=== PATIENT | female | born 1955 | race American Indian/Alaskan Native ===

== ENCOUNTER 2019-06-20 10:25 | Day surgery (SDC) | payer BC, OTHER ==
[~2019-06-20 10:25] MED LIST: BUPIVACAINE/PF (0.25%) 2.5 MG/ML 30 ML VIAL INFILTRATI ONE; BUPIVACAINE/PF (0.5%) 5 MG/1 ML 30 ML VIAL INFILTRATI ONE; LIDOCAINE (1%) 10 MG/1 ML VIAL 20 ML MDV ONE
[2019-06-20] MEDS ORDERED: LIDOCAINE (1%) 10 MG/1 ML VIAL 20 ML MDV ONE (11:14)
[2019-06-20] MEDS ORDERED: BUPIVACAINE/PF (0.5%) 5 MG/1 ML 30 ML VIAL INFILTRATI ONE ×2 (11:14→13:40)
[2019-06-20] MEDS ORDERED: LIDOCAINE (1%) 10 MG/1 ML VIAL 20 ML MDV INFILTRATI ONE ×2 (13:29)
[2019-06-20 13:58] VITALS: BP 147/87
--- NOTE | 2019-06-20 14:58 | XRay Report ---
LUMBAR SPINE AP AND LATERAL VIEWS INDICATION: LOW BACK PAIN// NERVE BLOCK L2-5. The examination was performed in the OR. COMPARISON: No relevant prior imaging study available. FINDINGS/IMPRESSION: 4 needles jarrell the right pedicles at 2, 3, 4 and 5. Large right lateral osteophytes at L4-5. For more detail, please refer to the operative report. Signer Name: Carson Tapia MD Signed: 06/20/2019 2:54 PM Workstation Name: [id number]
--- NOTE | 2019-06-20 16:27 | Procedure Note ---
Date of procedure: 06/20/19 Pre-op diagnosis: chronic right sided low back pain Post-op diagnosis: same Procedure: Lumbar facet blocks at right L2 through L5 Procedure The patient was brought to the OR and placed prone onto the OR table, the lumbar spine was prepped and draped in the usual sterile manner. A timeout procedure was done to identify the patient and the correct levels of nerve block being performed the patient was awake during the procedure. Using C-arm fluoroscopy the L5 through L2 levels were visualized in both the PA and 45 oblique views 20-gauge spinal needles were inserted again under direct fluoroscopic control after placing the spinal needles and the correct position and Marcaine injection was performed using 1% without epinephrine. The patient tolerated the procedure and no complications Anesthesia: local Surgeon: IKER BONILLA Estimated blood loss: minimal Pathology: none Condition: stable Disposition: observation
== END 2019-06-20 10:26 | disposition home or self-care (01) ==
LOC: OR 10:25
PROVIDERS: ATTEND Orthopaedic Surgery
DX: M54.5 Low back pain (principal); G89.29 Other chronic pain; M25.78 Osteophyte, vertebrae; G43.909 Migraine, unspecified, not intractable, without status migrainosus; E78.00 Pure hypercholesterolemia, unspecified; J45.909 Unspecified asthma, uncomplicated; M19.90 Unspecified osteoarthritis, unspecified site; I10 Essential (primary) hypertension; Z88.2 Allergy status to sulfonamides; Z88.6 Allergy status to analgesic agent; Z88.5 Allergy status to narcotic agent; Z91.041 Radiographic dye allergy status; Z91.013 Allergy to seafood; Z90.49 Acquired absence of other specified parts of digestive tract; Z98.51 Tubal ligation status; Z90.710 Acquired absence of both cervix and uterus; Z98.890 Other specified postprocedural states; Z88.8 Allergy status to other drugs, medicaments and biological substances; Z86.73 Personal history of transient ischemic attack (TIA), and cerebral infarction without residual deficits
CPT/HCPCS: 72100; 82962

== ENCOUNTER 2019-07-04 10:45 | Day surgery (SDC) | payer BC ==
[2019-07-04] MEDS ORDERED: BUPIVACAINE/PF (0.5%) 5 MG/1 ML 30 ML VIAL INFILTRATI ONE ×3 (11:16→12:06)
[2019-07-04] MEDS ORDERED: LIDOCAINE (1%) 10 MG/1 ML VIAL 20 ML MDV ONE ×3 (11:16→12:11)
[2019-07-04] MEDS ORDERED: LIDOCAINE (1%) 10 MG/1 ML VIAL 20 ML MDV INFILTRATI ONE ×2 (12:09)
--- NOTE | 2019-07-04 12:35 | Procedure Note ---
Date of procedure: 07/04/19 Pre-op diagnosis: chronic low back pain Post-op diagnosis: same Procedure: Lumbar facet blocks at right L2 through L5 Procedure The patient was brought to the OR and placed prone onto the OR table, the lumbar spine was prepped and draped in the usual sterile manner. A timeout procedure was done to identify the patient and the correct levels of nerve block being performed the patient was awake during the procedure. Using C-arm fluoroscopy the L5 through L2 levels were visualized in both the PA and 45 oblique views 20-gauge spinal needles were inserted again under direct fluoroscopic control after placing the spinal needles and the correct position and Marcaine injection was performed using 1% without epinephrine. The patient tolerated the procedure and no complications Anesthesia: local Surgeon: IKER BONILLA Estimated blood loss: minimal Pathology: none Condition: stable Disposition: observation
[2019-07-04 12:36] VITALS: BP 136/78
--- NOTE | 2019-07-04 13:33 | XRay Report ---
INTRAOPERATIVE FLUOROSCOPY: LUMBAR SPINE INDICATION: Pain along the lumbar spine. Guidance for lumbar spine nerve block. TECHNIQUE: Intraoperative spot images were obtained during the procedure. FINDINGS: The submitted images demonstrate spinal needles placed along the right pedicles of L2-L5. Please see the procedure report for further details. Fluoroscopy Time: 0.4 minutes. Fluoroscopy Images: 2. Signer Name: Juan Bravo MD Signed: 07/04/2019 1:28 PM Workstation Name: [id number]
== END 2019-07-04 12:42 | disposition home or self-care (01) ==
LOC: OR 10:45
PROVIDERS: ATTEND Orthopaedic Surgery
DX: M54.41 Lumbago with sciatica, right side (principal); I10 Essential (primary) hypertension; E78.00 Pure hypercholesterolemia, unspecified; K21.9 Gastro-esophageal reflux disease without esophagitis; G43.909 Migraine, unspecified, not intractable, without status migrainosus; J45.909 Unspecified asthma, uncomplicated; M19.90 Unspecified osteoarthritis, unspecified site; Z83.3 Family history of diabetes mellitus; Z80.0 Family history of malignant neoplasm of digestive organs; Z98.890 Other specified postprocedural states; Z90.710 Acquired absence of both cervix and uterus; Z88.2 Allergy status to sulfonamides; Z88.6 Allergy status to analgesic agent; Z91.013 Allergy to seafood; Z79.84 Long term (current) use of oral hypoglycemic drugs; Z91.041 Radiographic dye allergy status; Z90.49 Acquired absence of other specified parts of digestive tract; Z98.51 Tubal ligation status; Z86.2 Personal history of diseases of the blood and blood-forming organs and certain disorders involving the immune mechanism; Z82.49 Family history of ischemic heart disease and other diseases of the circulatory system; Z86.73 Personal history of transient ischemic attack (TIA), and cerebral infarction without residual deficits
CPT/HCPCS: 72100; 82962

== ENCOUNTER 2019-07-26 09:45 | Day surgery (SDC) | payer BC ==
--- NOTE | 2019-07-26 10:16 | Anesthesia Consultation ---
Anesthesia Consult and Med Hx Date of service: 07/26/19 - Airway Anesthetic Teeth Evaluation: Good ROM Head & Neck: Adequate Mental/Hyoid Distance: Adequate Mallampati Class: Class II Intubation Access Assessment: Good - Pulmonary Exam CTA: Yes - Cardiac Exam Cardiac Exam: RRR - Pre-Operative Health Status ASA Pre-Surgery Classification: ASA3 Proposed Anesthetic Plan: MAC (HTN, DM, prior CVA) - Pulmonary Hx Smoking: No Hx Asthma: Yes (DAILY INHALERS) COPD: No Hx Pneumonia: No Hx Sleep Apnea: No (FABRICIO PRE SCREEN LOW RISK) - Cardiovascular System Hx Hypertension: Yes (X 30 YRS) - Central Nervous System Hx Neuromuscular Disorder: No Hx Seizures: Yes (ON DAILY MEDS) CVA: Yes (2000- RIGHT SIDED WEAKNESS) Hx Back Pain: Yes (CHRONIC PAIN- BACK PAIN TO RT LEG/ DAILY MEDS) Hx Psychiatric Problems: No - Endocrine Hx Renal Disease: No - Hematic Hx Anemia: Yes - Other Systems Hx Cancer: No
[2019-07-26] MEDS ORDERED: ONDANSETRON 4 MG/2 ML INJ IV PRN (10:17)
--- NOTE | 2019-07-26 10:17 | Anesthesia Day of Surgery ---
Anesthesia Day of Surgery - Day of Surgery Patient Examined: Yes Patient H&P Reviewed: Yes Patient is NPO: Yes
[2019-07-26] MEDS ORDERED: BUPIVACAINE/PF (0.5%) 5 MG/1 ML 30 ML VIAL INFILTRATI ONE ×2 (10:55→13:37)
[2019-07-26] MEDS ORDERED: methylPREDNISolone ACETATE 40 MG/1 ML INJ ONE (10:55)
[2019-07-26] MEDS ORDERED: LIDOCAINE (1%) 10 MG/1 ML VIAL 20 ML MDV ONE (10:55)
[2019-07-26] MEDS ORDERED: MIDAZOLAM 2 MG/2 ML INJ IV NR (11:00)
[2019-07-26] MEDS ORDERED: LACTATED RINGERS 1,000 ML IV SCH (11:00)
[2019-07-26 11:41] LABS: Basophils % (Auto) 0.6 % (0.0-1.8); Eosinophils # (Auto) 0.1 K/mm3 (0.0-0.4); Eosinophils % (Auto) 0.9 % (0.0-4.3); Hematocrit 39.6 % (30.3-42.9); Hemoglobin 13.7 gm/dl (10.1-14.3); Lymphocytes # (Auto) 3.7 K/mm3 (1.2-5.4); Lymphocytes % (Auto) 48.2 % (13.4-35.0); Mean Corpuscular HGB Conc 35 % (30-34); Mean Corpuscular Volume 95 fl (79-97); Monocytes # (Auto) 0.5 K/mm3 (0.0-0.8); Monocytes % (Auto) 6.1 % (0.0-7.3); Platelet Count 217 K/mm3 (140-440); Red Blood Count 4.18 M/mm3 (3.65-5.03); Red Cell Distribution Width 13.9 % (13.2-15.2)
[2019-07-26 11:55] LABS: BUN/Creatinine Ratio 13; Blood Urea Nitrogen 10 mg/dL (7-17); Calcium 9.5 mg/dL (8.4-10.2); Hemolysis Index 11
[2019-07-26] MEDS ORDERED: PROPOFOL 200 MG/20 ML VIAL IV ONE (13:01)
[2019-07-26] MEDS ORDERED: fentaNYL 100 MCG/2 ML INJ ONE (13:01)
[2019-07-26] MEDS ORDERED: HYDROmorphone 1 MG/1 ML INJ ONE (13:23)
[2019-07-26] MEDS ORDERED: LIDOCAINE MPF (2%) 20 MG/1 ML VIAL 5 ML ONE (13:24)
[2019-07-26] MEDS ORDERED: LIDOCAINE (1%) 10 MG/1 ML VIAL 20 ML MDV INFILTRATI ONE (14:00)
[2019-07-26] MEDS ORDERED: methylPREDNISolone ACETATE 40 MG/1 ML INJ INTRA-ARTI ONE (14:00)
[2019-07-26] MEDS ORDERED: MIDAZOLAM 2 MG/2 ML INJ ONE (14:26)
--- NOTE | 2019-07-26 14:27 | Procedure Note ---
Date of procedure: 07/26/19 Pre-op diagnosis: chronic low back pain Post-op diagnosis: same Procedure: Lumbar radiofrequency ablation at the right L2-5 Procedure The patient was brought to the OR and placed on the Joel table prone with a pillow place underneath the abdomen to straighten out the lumbar spine next the lumbar spine area was prepped and draped in the usual sterile manner. A timeout procedure done to identify the patient and correct operative site Using C-arm fluoroscopy 4 lumbar pain management introducers placed in the area near the superior articular process junctions to the transverse processes AP and lateral views were used to confirm correct placement of the probes. Next motor nerves were checked to ensure that we were not next to a motor branch following this local anesthetic was used to deaden the area followed by radiofrequency ablation of the medial branch of the dorsal rami. This step repeated for each level until we had perform all four spots. At the completion of the third and final ablation the patient was awakened and was taken to postanesthesia recovery in a stable condition, there were no complications Anesthesia: MAC Surgeon: IKER BONILLA Estimated blood loss: minimal Pathology: none Condition: stable Disposition: PACU
[2019-07-26] MEDS ORDERED: DEXTROSE 50% IN WATER (25GM) 50 ML SYRINGE IV ONE (14:33)
--- NOTE | 2019-07-26 15:03 | XRay Report ---
INTRAOPERATIVE FLUOROSCOPY: LUMBOSACRAL SPINE INDICATION / CLINICAL INFORMATION: LOWER BACK PAIN. TECHNIQUE: Intraoperative spot images were obtained during the procedure. FINDINGS: Lateral image demonstrates spinal needles projecting over the posterior elements from L2-L5. AP image demonstrates radiofrequency probe projecting over the L3 level. Fluoroscopy Time: 0.4 minutes. Fluoroscopy Images: 2. Signer Name: Donna Charles MD Signed: 07/26/2019 2:59 PM Workstation Name: [id number]
[2019-07-26 16:25] VITALS: BP 152/78
--- NOTE | 2019-07-27 06:53 | Post Anesthesia Evaluation ---
- Post Anesthesia Evaluation Patient Participated: Yes Airway Patent: Yes Stable Respiratory Function: Yes Nausea/Vomiting: No Temp > 96.8F: Yes Pain Manageable: Yes Adequeate Hydration: Yes Anesthesia Complications: No Block Receding Appropriately: Not Applicable Patient on Ventilator: No
== END 2019-07-26 09:46 | disposition home or self-care (01) ==
LOC: OR 09:45
PROVIDERS: ATTEND Orthopaedic Surgery
DX: M54.5 Low back pain (principal); G89.29 Other chronic pain; G43.909 Migraine, unspecified, not intractable, without status migrainosus; J45.909 Unspecified asthma, uncomplicated; E78.00 Pure hypercholesterolemia, unspecified; M19.90 Unspecified osteoarthritis, unspecified site; I10 Essential (primary) hypertension; Z98.890 Other specified postprocedural states; Z90.49 Acquired absence of other specified parts of digestive tract; Z88.2 Allergy status to sulfonamides; Z88.6 Allergy status to analgesic agent; Z91.040 Latex allergy status; Z91.013 Allergy to seafood; Z88.8 Allergy status to other drugs, medicaments and biological substances; Z86.73 Personal history of transient ischemic attack (TIA), and cerebral infarction without residual deficits; Z86.2 Personal history of diseases of the blood and blood-forming organs and certain disorders involving the immune mechanism; Z98.51 Tubal ligation status
CPT/HCPCS: 36415; 64635; 64636; 72100; 80048; 82962; 85025; A4649; J1030; J1170; J2250; J2704; J3010; J7120

== ENCOUNTER 2019-08-07 15:49 | Emergency (ER) | payer BC ==
[2019-08-07 15:56] VITALS: BP 133/68
--- NOTE | 2019-08-07 20:22 | Emergency Department Report ---
ED Headache HPI - General Chief Complaint: Headache Stated Complaint: SOB/MIGRAINE Time Seen by Provider: 08/07/19 20:02 Source: patient, RN notes reviewed Exam Limitations: no limitations - History of Present Illness Initial Comments: This is a 64-year-old -[place] female that presents to the emergency room with a migraine headache for 5 days. Past medical history of hypertension, diverticulosis, hyperlipidemia, coronary artery disease, and CVA with right- sided weakness. Patient stays she occasionally get migraine headaches but nothing like this one. Reports headaches is usually on the right side but this time there is a constant throbbing across head. Reports photophobia, nausea, and weakness. Patient also states she is recovering from an upper respiratory infection or possible flu. Reports increased use of inhalers, cough, fever, and chills. She is taking [id number] cold and flu medications with some improvement in symptoms. Timing/Duration: 24 hours Quality: severe, constant, throbbing Head Injury Location: global Recent Head Trauma: chronic headaches Modifying Factors: improves with: exposure to light, movement Associated Symptoms: fever/chills, nausea/vomiting, nasal congestion, nasal drainage, weakness. denies: confusion, fatigue, facial pain, loss of consciousness, numbness in legs/feet, rash, seizures, sinus infection, stiff neck, vision changes Allergies/Adverse Reactions: Allergies Sulfa (Sulfonamide Antibiotics) Allergy (Mild, Verified 08/07/19 15:53) Unknown acetaminophen [From Darvocet-N] Allergy (Verified 08/07/19 15:53) RASH;ITCHING adhesive Allergy (Verified 08/07/19 15:53) PULLS SKIN OFF aspirin Allergy (Verified 08/07/19 15:53) Itching atorvastatin Allergy (Verified 08/07/19 15:53) Unknown caffeine Allergy (Verified 08/07/19 15:53) Unknown ibuprofen [From Motrin] Allergy (Verified 08/07/19 15:53) Unknown Iodinated Contrast Media [Iodinated Contrast Media - IV Dye] Allergy (Verified 08/07/19 15:53) Angioedema iodine Allergy (Verified 08/07/19 15:53) Swelling latex Allergy (Verified 08/07/19 15:53) ITCHING;RASH lidocaine Allergy (Verified 08/07/19 15:53) Unknown oxycodone HCl [From Percocet] Allergy (Verified 08/07/19 15:53) Itching;RASH propoxyphene napsylate [From Darvocet-N] Allergy (Verified 08/07/19 15:53) RASH;ITCHING shellfish derived Allergy (Verified 08/07/19 15:53) Swelling Home Medications: Ambulatory Orders Clonidine HCl 0.1 mg PO BID 04/21/14 Gabapentin 300 mg PO TID 04/21/14 Losartan [Cozaar] 100 mg PO DAILY 04/21/14 amLODIPine 10 mg PO QHS 04/21/14 ALBUTEROL Inhaler (OR & NICU) [ProAir HFA Inhaler] 2 puff IH PRN PRN 06/18/19 Cetirizine HCl [ZyrTEC 10mg cap] 10 mg PO DAILY 06/18/19 Clopidogrel [Plavix] 75 mg PO QDAY 06/18/19 Dicyclomine [Bentyl] 10 mg PO BID PRN 06/18/19 Fluticasone/Vilanterol [Breo Ellipta 100-25 Mcg INH] 1 puff IH DAILY 06/18/19 HYDROcodone/APAP 5-325 [Wendell 5/325] 1 each PO BID 06/18/19 L. Acidophilus/Pectin, Gibson [Acidophilus Probiotic Capsule] 1 each PO DAILY 06/18/19 Linaclotide [Linzess] 290 mcg PO DAILY 06/18/19 Magnesium Citrate 1 dose PO QWEEK PRN 06/18/19 Montelukast [Singulair] 10 mg PO QPM 06/18/19 Phenytoin [Dilantin] 300 mg PO DAILY 06/18/19 Propranolol [Inderal] 40 mg PO BID 06/18/19 Rosuvastatin Calcium [Crestor] 40 mg PO DAILY 06/18/19 Wheat Dextrin [Benefiber] 1 dose PO DAILY 06/18/19 bisacodyL [Dulcolax] 5 mg PO DAILY PRN 06/18/19 metFORMIN [Glucophage] 500 mg PO BID 06/18/19 raNITIdine HCl [Zantac] 300 mg PO QHS 06/18/19 tiZANidine [Zanaflex 4mg TAB] 4 mg PO BID 06/18/19 traZODone [Desyrel] 100 mg PO QHS 06/18/19 HYDROcodone/APAP 7.5-325 [Wendell 7.5-325 mg TAB] 1 each PO Q6HR PRN #20 tablet 07/04/19 HYDROcodone/APAP 5-325 [Wendell 5-325 mg TAB] 1 each PO Q4HR PRN #20 tablet 07/26 Benzonatate [Tessalon Perles] 100 mg PO Q8HR PRN #30 capsule 08/07/19 Butalbital/Acetaminophen [Butalbital-Acetaminophn 50-325] 1 each PO DAILY PRN #10 tablet 08/07/19 Ondansetron [Zofran Odt] 4 mg PO Q8HR PRN #20 tab.rapdis 08/07/19 ED Review of Systems ROS: Stated complaint: SOB/MIGRAINE Other details as noted in HPI Constitutional: denies: chills, fever Eyes: other (photophobia) ENT: congestion. denies: ear pain, throat pain Respiratory: cough, SOB with exertion. denies: shortness of breath, wheezing Cardiovascular: denies: chest pain, palpitations Gastrointestinal: nausea. denies: abdominal pain, vomiting, diarrhea Musculoskeletal: myalgia. denies: back pain, joint swelling, arthralgia Skin: denies: rash, lesions Neurological: headache. denies: weakness, paresthesias Psychiatric: denies: anxiety, depression ED Past Medical Hx - Past Medical History Previous Medical History?: Yes Hx Hypertension: Yes (X 30 YRS) Hx Diabetes: Yes (ON METFORMIN) Hx GERD: Yes (DAILY MEDS) Hx Renal Disease: No Hx Arthritis: Yes (JOINT PAIN) Hx Headaches / Migraines: Yes (MIGRAINES - TAKES DAILY DILANTIN) Hx Seizures: Yes (ON DAILY MEDS) Hx Asthma: Yes (DAILY INHALERS) Hx COPD: No Hx HIV: No - Surgical History Past Surgical History?: Yes Hx Cholecystectomy: Yes - Social History Smoking Status: Never Smoker Substance Use Type: None - Medications Home Medications: Home Medications Medication Instructions Recorded Confirmed Last Taken Type Clonidine HCl 0.1 mg PO BID 04/21/14 07/26/19 07/26/19 05:00 History Gabapentin 300 mg PO TID 04/21/14 07/26/19 07/25/19 22:00 History Losartan [Cozaar] 100 mg PO DAILY 04/21/14 07/26/19 07/26/19 05:00 History amLODIPine 10 mg PO QHS 04/21/14 07/26/19 07/25/19 22:00 History ALBUTEROL Inhaler (OR & NICU) 2 puff IH PRN PRN 06/18/19 07/26/19 07/26/19 06:00 History [ProAir HFA Inhaler] Cetirizine HCl [ZyrTEC 10mg cap] 10 mg PO DAILY 06/18/19 07/26/19 07/26/19 05:00 History Clopidogrel [Plavix] 75 mg PO QDAY 06/18/19 07/26/19 07/19/19 09:00 History Dicyclomine [Bentyl] 10 mg PO BID PRN 06/18/19 07/26/19 07/25/19 19:00 History Fluticasone/Vilanterol [Breo 1 puff IH DAILY 06/18/19 07/26/19 07/25/19 22:00 History Ellipta 100-25 Mcg INH] HYDROcodone/APAP 5-325 [Wendell 1 each PO BID 06/18/19 07/17/19 Unknown History 5/325] L. Acidophilus/Pectin, Gibson 1 each PO DAILY 06/18/19 07/26/19 07/25/19 05:00 History [Acidophilus Probiotic Capsule] Linaclotide [Linzess] 290 mcg PO DAILY 06/18/19 07/26/19 07/25/19 05:00 History Magnesium Citrate 1 dose PO QWEEK PRN 06/18/19 07/26/19 07/19/19 09:00 History Montelukast [Singulair] 10 mg PO QPM 06/18/19 07/26/19 07/25/19 22:00 History Phenytoin [Dilantin] 300 mg PO DAILY 06/18/19 07/26/19 07/26/19 05:00 History Propranolol [Inderal] 40 mg PO BID 06/18/19 07/26/19 07/25/19 22:00 History Rosuvastatin Calcium [Crestor] 40 mg PO DAILY 06/18/19 07/26/19 07/25/19 09:00 History Wheat Dextrin [Benefiber] 1 dose PO DAILY 06/18/19 07/26/19 07/25/19 09:00 Hist ory bisacodyL [Dulcolax] 5 mg PO DAILY PRN 06/18/19 07/26/19 07/25/19 09:00 History metFORMIN [Glucophage] 500 mg PO BID 06/18/19 07/26/19 07/25/19 19:00 History raNITIdine HCl [Zantac] 300 mg PO QHS 06/18/19 07/26/19 07/25/19 22:00 History tiZANidine [Zanaflex 4mg TAB] 4 mg PO BID 06/18/19 07/26/19 07/25/19 22:00 History traZODone [Desyrel] 100 mg PO QHS 06/18/19 07/26/19 07/24/19 21:00 History HYDROcodone/APAP 7.5-325 [Wendell 1 each PO Q6HR PRN #20 tablet 07/04/19 07/26/19 07/25/19 16:00 Rx 7.5-325 mg TAB] HYDROcodone/APAP 5-325 [Wendell 1 each PO Q4HR PRN #20 tablet 07/26/19 Unknown Rx 5-325 mg TAB] Benzonatate [Tessalon Perles] 100 mg PO Q8HR PRN #30 capsule 08/07/19 Unknown Rx Butalbital/Acetaminophen 1 each PO DAILY PRN #10 tablet 08/07/19 Unknown Rx [Butalbital-Acetaminophn 50-325] Ondansetron [Zofran Odt] 4 mg PO Q8HR PRN #20 tab.rapdis 08/07/19 Unknown Rx ED Physical Exam - General Limitations: No Limitations General appearance: alert, in no apparent distress, obese - Eye Eye exam: Present: normal appearance - ENT ENT exam: Present: mucous membranes moist, TM's normal bilaterally, normal external ear exam, other (turbinates congested with clear discharge). Absent: normal orophraynx (erythematous posterior pharynx, uvula midline without exudated) - Neck Neck exam: Present: normal inspection - Respiratory Respiratory exam: Present: normal lung sounds bilaterally. Absent: respiratory distress - Cardiovascular Cardiovascular Exam: Present: regular rate, normal rhythm. Absent: systolic murmur, diastolic murmur, rubs, gallop - GI/Abdominal GI/Abdominal exam: Present: soft, normal bowel sounds. Absent: distended, tenderness, guarding, rebound, rigid - Extremities Exam Extremities exam: Present: normal inspection - Neurological Exam Neurological exam: Present: alert, oriented X3 - Expanded Neurological Exam Expanded Patient oriented to: Present: person, place, time Speech: Present: fluid speech Cranial nerves: EOM's Intact: Normal, Gag Reflex: Normal, Tongue Deviation: Normal, Nystagmus: Normal, Facial Sensation: Normal, Facial Palsy with Forehead Movement: Normal, Facial Palsy without Forehead Movement: Normal Cerebellar function: Finger to Nose: Normal Sensory exam: Upper Extremity Light Touch: Normal, Upper Extremity Pin Prick: Normal, Upper Extremity Temperature: Normal, UE 2 Point Discrimination: Normal Motor strength exam: RUE: 4, LUE: 5 Best Eye Response (Krista): (4) open spontaneously Best Motor Response (Krista): (6) obeys commands Best Verbal Response ([place]): (5) oriented [place] Total: 15 - Psychiatric Psychiatric exam: Present: normal affect, normal mood - Skin Skin exam: Present: warm, dry, intact, normal color. Absent: rash ED Course Vital Signs 08/07/19 15:54 Temperature 98.8 F Pulse Rate 79 Respiratory 19 Rate Blood Pressure 133/68 O2 Sat by Pulse 95 Oximetry ED Medical Decision Making - Radiology Data Radiology results: report reviewed CHEST 2 VIEWS INDICATION: cough and dyspnea. COMPARISON: None. FINDINGS: Support devices: None. Heart: Within normal limits. Lungs/Pleura: No acute air space or interstitial disease. No significant pleural effusion. IMPRESSION: No acute findings. CT head/brain wo con INDICATION / CLINICAL INFORMATION: migraine headache. TECHNIQUE: All CT scans at this location are performed using CT dose reduction for ALARA by means of automated exposure control. COMPARISON: None available. FINDINGS: No intracranial hemorrhage or abnormal extra-axial fluid collection. The ventricular system and basilar cisterns are normal. No evidence of mass effect or territorial infarction. No acute sinus disease. No osseous abnormality. IMPRESSION: 1. No acute intracranial abnormality. - Medical Decision Making Patient is stable and examined by me. Signs of distress noted. CT of hated and chest x-ray are obtained. CT findings of No acute intracranial abnormality. Chest x-ray with no acute cardiopulmonary findings. Given Compazine, Reglan, and dexamethasone while in the ER. Migraine headache. Start Fioricet and Z ofran. Viral syndrome. Start benzonatate and continue [id number]-dei-sisbzkr medication. Follow up with PCP. No further questions noted by the patient. Discharged home in stable condition. Follow up with PCP in 24-72 hours. Critical care attestation.: If time is entered above; I have spent that time in minutes in the direct care of this critically ill patient, excluding procedure time. ED Disposition Clinical Impression: Vomiting alone, Cough in adult, Fever and chills, Acute viral syndrome Migraine Qualifiers: Migraine type: without aura Status migrainosus presence: without status migrainosus Intractability: not intractable Qualified Code(s): G43.009 - Migraine without aura, not intractable, without status migrainosus Disposition: TO HOME OR SELFCARE Is pt being admited?: No Condition: Stable Instructions: Viral Syndrome (ED), Cold Symptoms (ED), Migraine Headache (ED) Additional Instructions: Avoid large crowds to prevent transmission of virus. Increase fluid intake to prevent dehydration. Wash hands frequently. Take Tylenol or ibuprofen every 4-6 hours for relief of headache, fever, and body aches. Return to school after 24 hours of being fever free. Follow up with primary care doctor in 2-3 days if symptoms are not improving. Prescriptions: Butalbital/Acetaminophen [Butalbital-Acetaminophn 50-325] 1 each PO DAILY PRN #10 tablet PRN Reason: Migraine Headache Benzonatate [Tessalon Perles] 100 mg PO Q8HR PRN #30 capsule PRN Reason: Cough Ondansetron [Zofran Odt] 4 mg PO Q8HR PRN #20 tab.rapdis PRN Reason: Cough Referrals: [facility] [Provider Group] - 3-5 Days RAFFY AGUILAR MD [Staff Physician] - 3-5 Days [facility] [Provider Group] - 3-5 Days Time of Disposition: 23:24
--- NOTE | 2019-08-07 21:05 | XRay Report ---
CHEST 2 VIEWS INDICATION: cough and dyspnea. COMPARISON: None. FINDINGS: Support devices: None. Heart: Within normal limits. Lungs/Pleura: No acute air space or interstitial disease. No significant pleural effusion. IMPRESSION: No acute findings. Signer Name: Juan C Guidry MD Signed: 08/07/2019 9:01 PM Workstation Name: [id number]
[2019-08-07] MEDS ORDERED: diphenhydrAMINE 50 MG/ML VIAL IV ONE (21:30)
[2019-08-07] MEDS ORDERED: PROCHLORPERAZINE EDISYLATE 10 MG/2 ML VIAL IV ONE (21:30)
--- NOTE | 2019-08-07 22:25 | Cat Scan Report ---
CT head/brain wo con INDICATION / CLINICAL INFORMATION: migraine headache. TECHNIQUE: All CT scans at this location are performed using CT dose reduction for ALARA by means of automated e xposure control. COMPARISON: None available. FINDINGS: No intracranial hemorrhage or abnormal extra-axial fluid collection. The ventricular system and basilar cisterns are normal. No evidence of mass effect or territorial infarction. No acute sinus disease. No osseous abnormality. IMPRESSION: 1. No acute intracranial abnormality. Signer Name: Walker Archer MD Signed: 08/07/2019 10:21 PM Workstation Name: [id number]
[2019-08-07] MEDS ORDERED: dexAMETHasone 20 MG/5 ML VIAL IV ONE (23:24)
== END 2019-08-08 00:15 | disposition home or self-care (01) ==
LOC: ED 15:49
DX: B34.9 Viral infection, unspecified (principal); I10 Essential (primary) hypertension; E11.9 Type 2 diabetes mellitus without complications; K21.9 Gastro-esophageal reflux disease without esophagitis; M19.90 Unspecified osteoarthritis, unspecified site; G43.909 Migraine, unspecified, not intractable, without status migrainosus; G40.909 Epilepsy, unspecified, not intractable, without status epilepticus; J45.909 Unspecified asthma, uncomplicated; Z90.49 Acquired absence of other specified parts of digestive tract; Z79.899 Other long term (current) drug therapy; Z88.2 Allergy status to sulfonamides; Z88.8 Allergy status to other drugs, medicaments and biological substances
CPT/HCPCS: 70450; 71046; 96374; 96375; 99284; J0780; J1100; J1200

== ENCOUNTER 2019-09-27 11:05 | Inpatient (IN) | payer BC ==
[2019-09-27 14:16] LABS: Hematocrit 40.2 % (30.3-42.9); Hemoglobin 13.7 gm/dl (10.1-14.3); Mean Corpuscular HGB Conc 34 % (30-34); Mean Corpuscular Volume 95 fl (79-97); Platelet Count 210 K/mm3 (140-440); Red Blood Count 4.22 M/mm3 (3.65-5.03); Red Cell Distribution Width 15.5 % (13.2-15.2)
[2019-09-27 14:39] LABS: Alanine Aminotransferase 23 units/L (7-56); Albumin 4.6 g/dL (3.9-5); BUN/Creatinine Ratio 11; Blood Urea Nitrogen 8 mg/dL (7-17); Calcium 9.4 mg/dL (8.4-10.2); Hemolysis Index 23
[2019-09-27 15:02] LABS: INR 0.87 (0.87-1.13)
[2019-09-27 15:03] LABS: Partial Thromboplastin Time 26.1 Sec. (24.2-36.6)
[2019-09-27 15:05] LABS: Basophils % (Manual) 0 % (0.0-1.8); Eosinophils % (Manual) 0 % (0.0-4.3); Platelet Estimate Consistent w Auto; RBC Morphology Normal; Total Cells Counted 100
--- NOTE | 2019-09-27 16:07 | Emergency Department Report ---
ED GI Bleed HPI - General Chief complaint: GI Bleed Stated complaint: RECTAL BLEEDING Time Seen by Provider: 09/27/19 14:36 Source: patient Mode of arrival: Stretcher Limitations: No Limitations - History of Present Illness Initial comments: 64-year-old female with a past medical history of diverticular disease, diverticulitis, partial colon resection secondary to diverticular disease presents to the hospital complaining of rectal bleeding intermittently for the last 1 month more persistent for the last 3 days. Patient states she has a sensation of either passing gas or having a bowel movement and then will passes bright red blood per rectum. She complains of intermittent gnawing left lower quadrant pain that is moderate in intensity and worse with palpation. She denies fever, nausea, or vomiting. She had one episode of rectal bleeding today without the passage of stool. Patient showed me a picture of a blood-filled toilet and brown stool with blood on toilet paper. Patient takes Plavix daily and is allergic to aspirin. Patient had a colonoscopy performed in July secondary to left lower quadrant pain. She states she had a polypectomy. Bleeding has started since last colonoscopy. Although patient has a history of diverticular disease she denies history of diverticular GI bleed requiring blood transfusion. Ent patient's GI doctor: Dr. Erickson - Related Data Home Medications Medication Instructions Recorded Confirmed Last Taken Gabapentin 300 mg PO TID 04/21/14 09/27/19 07/25/19 22:00 Losartan [Cozaar] 100 mg PO DAILY 04/21/14 09/27/19 07/26/19 05:00 amLODIPine 10 mg PO QHS 04/21/14 09/27/19 07/25/19 22:00 Albuterol INH(or & Nicu Only) 2 puff IH PRN PRN 06/18/19 09/27/19 07/26/19 06:00 [ProAir HFA Inhaler] Cetirizine HCl [ZyrTEC 10mg cap] 10 mg PO DAILY 06/18/19 09/27/19 07/26/19 05:00 Clopidogrel [Plavix] 75 mg PO QDAY 06/18/19 09/27/19 07/19/19 09:00 Dicyclomine [Bentyl] 10 mg PO BID PRN 06/18/19 09/27/19 07/25/19 19:00 Fluticasone/Vilanterol [Breo 1 puff IH DAILY 06/18/19 09/27/19 07/25/19 22:00 Ellipta 100-25 Mcg INH] L. Acidophilus/Pectin, Ector 1 each PO DAILY 06/18/19 09/27/19 07/25/19 05:00 [Acidophilus Probiotic Capsule] Linaclotide [Linzess] 290 mcg PO DAILY 06/18/19 09/27/19 07/25/19 05:00 Magnesium Citrate 1 dose PO QWEEK PRN 06/18/19 09/27/19 07/19/19 09:00 Montelukast [Singulair] 10 mg PO QPM 06/18/19 09/27/19 07/25/19 22:00 Phenytoin [Dilantin] 300 mg PO DAILY 06/18/19 09/27/19 07/26/19 05:00 Rosuvastatin Calcium [Crestor] 40 mg PO DAILY 06/18/19 09/27/19 07/25/19 09:00 Wheat Dextrin [Benefiber] 1 dose PO DAILY 06/18/19 09/27/19 07/25/19 09:00 bisacodyL [Dulcolax] 5 mg PO DAILY PRN 06/18/19 09/27/19 07/25/19 09:00 metFORMIN [Glucophage] 500 mg PO BID 06/18/19 09/27/19 07/25/19 19:00 propranoloL [Inderal] 120 mg PO BID 06/18/19 09/27/19 07/25/19 22:00 traZODone [Desyrel] 100 mg PO QHS 06/18/19 07/26/19 07/24/19 21:00 Dilantin 100 mg PO DAILY 09/27/19 09/27/19 Unknown Metoprolol SUCCINATE ER TAB 100 mg PO DAILY 09/27/19 09/27/19 Unknown Pepcid 40 mg PO DAILY 09/27/19 09/27/19 Unknown Sumatriptan 50 mg PO DAILY 09/27/19 09/27/19 Unknown Topiramate 50 mg PO DAILY 09/27/19 09/27/19 Unknown metFORMIN 500 mg PO BID 09/27/19 09/27/19 Unknown Previous Rx's Medication Instructions Recorded Last Taken Type HYDROcodone/APAP 5-325 [Union 1 each PO Q4HR PRN #20 tablet 07/26/19 Unknown Rx 5-325 mg TAB] Ondansetron [Zofran Odt] 4 mg PO Q8HR PRN #20 tab.rapdis 08/07/19 Unknown Rx Allergies Allergy/AdvReac Type Severity Reaction Status Date / Time Sulfa (Sulfonamide Allergy Mild Unknown Verified 08/07/19 15:53 Antibiotics) acetaminophen Allergy RASH;ITCHIN Verified 08/07/19 15:53 [From Darvocet-N] G adhesive Allergy PULLS SKIN Verified 08/07/19 15:53 OFF aspirin Allergy Itching Verified 08/07/19 15:53 atorvastatin Allergy Unknown Verified 08/07/19 15:53 caffeine Allergy Unknown Verified 08/07/19 15:53 ibuprofen [From Motrin] Allergy Unknown Verified 08/07/19 15:53 Iodinated Contrast Media Allergy Angioedema Verified 08/07/19 15:53 [Iodinated Contrast Media - IV Dye] iodine Allergy Swelling Verified 08/07/19 15:53 latex Allergy ITCHING;NESTOR Verified 08/07/19 15:53 H lidocaine Allergy Unknown Verified 08/07/19 15:53 oxycodone HCl [From Percocet] Allergy Itching;NESTOR Verified 08/07/19 15:53 H propoxyphene napsylate Allergy RASH;ITCHIN Verified 08/07/19 15:53 [From Darvocet-N] G shellfish derived Allergy Swelling Verified 08/07/19 15:53 ED Review of Systems ROS: Stated complaint: RECTAL BLEEDING Other details as noted in HPI Comment: All other systems reviewed and negative ED Past Medical Hx - Past Medical History Previous Medical History?: Yes Hx Hypertension: Yes (X 30 YRS) Hx Diabetes: Yes (ON METFORMIN) Hx GERD: Yes (DAILY MEDS) Hx Renal Disease: No Hx Arthritis: Yes (JOINT PAIN) Hx Headaches / Migraines: Yes (MIGRAINES - TAKES DAILY DILANTIN) Hx Seizures: Yes (ON DAILY MEDS) Hx Asthma: Yes (DAILY INHALERS) Hx COPD: No Hx HIV: No - Surgical History Past Surgical History?: Yes Hx Cholecystectomy: Yes - Social History Smoking Status: Never Smoker Substance Use Type: None - Medications Home Medications: Home Medications Medication Instructions Recorded Confirmed Last Taken Type Gabapentin 300 mg PO TID 04/21/14 09/27/19 07/25/19 22:00 History Losartan [Cozaar] 100 mg PO DAILY 04/21/14 09/27/19 07/26/19 05:00 History amLODIPine 10 mg PO QHS 04/21/14 09/27/19 07/25/19 22:00 History Albuterol INH(or & Nicu Only) 2 puff IH PRN PRN 06/18/19 09/27/19 07/26/19 06:00 History [ProAir HFA Inhaler] Cetirizine HCl [ZyrTEC 10mg cap] 10 mg PO DAILY 06/18/19 09/27/19 07/26/19 05:00 History Clopidogrel [Plavix] 75 mg PO QDAY 06/18/19 09/27/19 07/19/19 09:00 History Dicyclomine [Bentyl] 10 mg PO BID PRN 06/18/19 09/27/19 07/25/19 19:00 History Fluticasone/Vilanterol [Breo 1 puff IH DAILY 06/18/19 09/27/19 07/25/19 22:00 History Ellipta 100-25 Mcg INH] L. Acidophilus/Pectin, Ector 1 each PO DAILY 06/18/19 09/27/19 07/25/19 05:00 History [Acidophilus Probiotic Capsule] Linaclotide [Linzess] 290 mcg PO DAILY 06/18/19 09/27/19 07/25/19 05:00 History Magnesium Citrate 1 dose PO QWEEK PRN 06/18/19 09/27/19 07/19/19 09:00 History Montelukast [Singulair] 10 mg PO QPM 06/18/19 09/27/19 07/25/19 22:00 History Phenytoin [Dilantin] 300 mg PO DAILY 06/18/19 09/27/19 07/26/19 05:00 History Rosuvastatin Calcium [Crestor] 40 mg PO DAILY 06/18/19 09/27/19 07/25/19 09:00 History Wheat Dextrin [Benefiber] 1 dose PO DAILY 06/18/19 09/27/19 07/25/19 09:00 History bisacodyL [Dulcolax] 5 mg PO DAILY PRN 06/18/19 09/27/19 07/25/19 09:00 History metFORMIN [Glucophage] 500 mg PO BID 06/18/19 09/27/19 07/25/19 19:00 History propranoloL [Inderal] 120 mg PO BID 06/18/19 09/27/19 07/25/19 22:00 History traZODone [Desyrel] 100 mg PO QHS 06/18/19 07/26/19 07/24/19 21:00 History HYDROcodone/APAP 5-325 [Union 1 each PO Q4HR PRN #20 tablet 07/26/19 09/27/19 Unknown Rx 5-325 mg TAB] Ondansetron [Zofran Odt] 4 mg PO Q8HR PRN #20 tab.rapdis 08/07/19 09/27/19 Unknown Rx Dilantin 100 mg PO DAILY 09/27/19 09/27/19 Unknown History Metoprolol SUCCINATE ER TAB 100 mg PO DAILY 09/27/19 09/27/19 Unknown History Pepcid 40 mg PO DAILY 09/27/19 09/27/19 Unknown History Sumatriptan 50 mg PO DAILY 09/27/19 09/27/19 Unknown History Topiramate 50 mg PO DAILY 09/27/19 09/27/19 Unknown History metFORMIN 500 mg PO BID 09/27/19 09/27/19 Unknown History ED Physical Exam - General Limitations: No Limitations - Other Other exam information: General: No acute distress Head: Atraumatic Eyes: normal appearance ENT: Moist mucous membranes Neck: Normal appearance, no midline tenderness Chest: Clear to auscultation bilaterally CV: Regular rate and rhythm Abdomen: Soft, normal bowel sounds, mild left lower quadrant tenderness, nondistended, no rebound or guarding Rectal: Guaiac negative, brown stool, no gross blood, external hemorrhoids Back: Normal inspection Extremity: Normal inspection, full range of motion Neuro: Alert O x 3, no facial asymmetry, speech clear, no gross motor sensory deficit Psych: Appropriate behavior Skin: No rash ED Course Vital Signs 09/27/19 09/27/19 09/27/19 11:26 16:03 18:34 Temperature 98 F Pulse Rate 87 89 74 Respiratory 16 16 16 Rate Blood Pressure 141/90 Blood Pressure 136/84 131/77 [Left] O2 Sat by Pulse 97 98 98 Oximetry 09/27/19 20:00 Temperature Pulse Rate 68 Respiratory 20 Rate Blood Pressure Blood Pressure 130/70 [Left] O2 Sat by Pulse 98 Oximetry - Reevaluation(s) Reevaluation #1: 09/27/19 22:31 During ED stay patient had a witnessed bloody rectal output without stool. Case was previously discussed with Dr. Carr earlier and he (or colleague) is agreeable to see patient during inpatient admission 09/27/19 22:32 - Consultations Consultation #1: 09/27/19 17:16 case d/w Dr Bakari Carr, since H/h stable and unremarkable digital exam in ed rec outpt f/u with GI. ED Medical Decision Making - Lab Data Result diagrams: 09/27/19 13:43 09/27/19 13:43 Lab Results 09/27/19 09/27/19 09/27/19 Range/Units 13:43 13:43 13:43 WBC 8.1 (4.5-11.0) K/mm3 RBC 4.22 (3.65-5.03) M/mm3 Hgb 13.7 (10.1-14.3) gm/dl Hct 40.2 (30.3-42.9) % MCV 95 (79-97) fl MCH 32 (28-32) pg MCHC 34 (30-34) % RDW 15.5 H (13.2-15.2) % Plt Count 210 (140-440) K/mm3 Lymph % (Auto) Jackscrew Worker Add Manual Diff Complete Total Counted 100 Seg Neuts % (Manual) 45.0 (40.0-70.0) % Band Neutrophils % 0 % Lymphocytes % (Manual) 54.0 H (13.4-35.0) % Reactive Lymphs % (Man) 0 % Monocytes % (Manual) 1.0 (0.0-7.3) % Eosinophils % (Manual) 0 (0.0-4.3) % Basophils % (Manual) 0 (0.0-1.8) % Metamyelocytes % 0 % Myelocytes % 0 % Promyelocytes % 0 % Blast Cells % 0 % Nucleated RBC % Not Reportable Seg Neutrophils # Man 3.6 (1.8-7.7) K/mm3 Band Neutrophils # 0.0 K/mm3 Lymphocytes # (Manual) 4.4 (1.2-5.4) K/mm3 Abs React Lymphs (Man) 0.0 K/mm3 Monocytes # (Manual) 0.1 (0.0-0.8) K/mm3 Eosinophils # (Manual) 0.0 (0.0-0.4) K/mm3 Basophils # (Manual) 0.0 (0.0-0.1) K/mm3 Metamyelocytes # 0.0 K/mm3 Myelocytes # 0.0 K/mm3 Promyelocytes # 0.0 K/mm3 Blast Cells # 0.0 K/mm3 WBC Morphology Not Reportable Hypersegmented Neuts Not Reportable Hyposegmented Neuts Not Reportable Hypogranular Neuts Not Reportable Smudge Cells Not Reportable Toxic Granulation Not Reportable Toxic Vacuolation Not Reportable Dohle Bodies Not Reportable Pelger-Huet Anomaly Not Reportable Dena Rods Not Reportable Platelet Estimate Consistent w auto Clumped Platelets Not Reportable Plt Clumps, EDTA Not Reportable Large Platelets Not Reportable Giant Platelets Not Reportable Platelet Satelliting Not Reportable Plt Morphology Comment Not Reportable RBC Morphology Normal Dimorphic RBCs Not Reportable Polychromasia Not Reportable Hypochromasia Not Reportable Poikilocytosis Not Reportable Anisocytosis Not Reportable Microcytosis Not Reportable Macrocytosis Not Reportable Spherocytes Not Reportable Pappenheimer Bodies Not Reportable Sickle Cells Not Reportable Target Cells Not Reportable Tear Drop Cells Not Reportable Ovalocytes Not Reportable Helmet Cells Not Reportable Hernandez-[place] Bodies Not Reportable [place] Rings Not Reportable [place] Cells Not Reportable Bite Cells Not Reportable Crenated Cell Not Reportable Elliptocytes Not Reportable Acanthocytes (Spur) Not Reportable Rouleaux Not Reportable Hemoglobin C Crystals Not Reportable Schistocytes Not Reportable Malaria parasites Not Reportable Richard Bodies Not Reportable Hem Pathologist Commnt No PT 11.9 L (12.2-14.9) Sec. INR 0.87 (0.87-1.13) APTT 26.1 (24.2-36.6) Sec. Sodium 142 (137-145) mmol/L Potassium 4.4 (3.6-5.0) mmol/L Chloride 106.0 (98-107) mmol/L Carbon Dioxide 20 L (22-30) mmol/L Anion Gap 20 mmol/L BUN 8 (7-17) mg/dL Creatinine 0.7 (0.7-1.2) mg/dL Estimated GFR > 60 ml/min BUN/Creatinine Ratio 11 % Glucose 102 H (65-100) mg/dL Calcium 9.4 (8.4-10.2) mg/dL Total Bilirubin 0.20 (0.1-1.2) mg/dL AST 21 (5-40) units/L ALT 23 (7-56) units/L Alkaline Phosphatase 138 H (35-129) units/L Total Protein 7.0 (6.3-8.2) g/dL Albumin 4.6 (3.9-5) g/dL Albumin/Globulin Ratio 1.9 % - Radiology Data Radiology results: report reviewed CT abdomen pelvis wo con INDICATION / CLINICAL INFORMATION: rectal bleeding, hx of diverticulosis. TECHNIQUE: Axial CT imaging of abdomen and pelvis was obtained without IV contrast. Oral contrast was administered. Coronal and sagittal reformatted imaging obtained and reviewed. All CT scans at this location are performed using CT dose reduction for ALARA by means of automated exposure control. COMPARISON: None available. FINDINGS: CT abdomen without contrast demonstrates grossly normal appearance of the liver, spleen, pancreas, kidneys, and adrenal glands. Prior cholecystectomy. CT pelvis does not demonstrate any pelvic mass, focal inflammatory change, or free fluid. Large amount of stool is present within the rectum consistent with impaction. The GI tract is otherwise unremarkable for acute finding. There is mild diverticulosis throughout the sigmoid and descending colon. Moderate amount of atherosclerotic calcific plaque is seen throughout the abdominal aorta and common iliac arteries, without associated aneurysm. Visualized lung bases are clear. No acute osseous abnormality of significance. There is mild multilevel degenerative disc disease of the lower lumbar spine. IMPRESSION: 1. No acute finding of abdomen or pelvis. 2. Large amount of stool within the rectum consistent with impaction. 3. Diverticulosis noted. - Medical Decision Making pt with repeated episodes of rectal bleeding in ed Vitals stable Initial H&H normal CT abdomen pelvis reviewed suggestive of diverticulosis as well as fecal impaction. In the ED patient is passing blood without stool. External hemo rrhoids on exam with history of internal hemorrhoids as per chart without gross blood during initial digital rectal exam. Patient will be admitted to the hospital service for further evaluation with GI consultation. - Differential Diagnosis Diverticular bleed, colon cancer, upper GI bleed Critical Care Time: No Critical care attestation.: If time is entered above; I have spent that time in minutes in the direct care of this critically ill patient, excluding procedure time. ED Disposition Clinical Impression: Rectal bleeding, External hemorrhoids, Diverticulosis, Abdominal pain, LLQ (left lower quadrant), Fecal impaction in rectum Disposition: OP ADMIT IP TO THIS HOSP Is pt being admited?: Yes Condition: Stable Time of Disposition: 22:39 (Dr Jazz Zamorano/hosp)
[2019-09-27] MEDS ORDERED: ASPIRIN 325 MG TAB ONE (20:29)
[2019-09-27] MEDS ORDERED: MECLIZINE 25 MG TAB ONE (20:29)
--- NOTE | 2019-09-27 22:29 | Cat Scan Report ---
CT abdomen pelvis wo con INDICATION / CLINICAL INFORMATION: rectal bleeding, hx of diverticulosis. TECHNIQUE: Axial CT imaging of abdomen and pelvis was obtained without IV contrast. Oral contrast was administer ed. Coronal and sagittal reformatted imaging obtained and reviewed. All CT scans at this location ar e performed using CT dose reduction for ALARA by means of automated exposure control. COMPARISON: None available. FINDINGS: CT abdomen without contrast demonstrates grossly normal appearance of the liver, spleen, pancreas, ki dneys, and adrenal glands. Prior cholecystectomy. CT pelvis does not demonstrate any pelvic mass, focal inflammatory change, or free fluid. Large amoun t of stool is present within the rectum consistent with impaction. The GI tract is otherwise unremark able for acute finding. There is mild diverticulosis throughout the sigmoid and descending colon. Moderate amount of atherosclerotic calcific plaque is seen throughout the abdominal aorta and common iliac arteries, without associated aneurysm. Visualized lung bases are clear. No acute osseous abnormality of significance. There is mild multilevel degenerative disc disease of t he lower lumbar spine. IMPRESSION: 1. No acute finding of abdomen or pelvis. 2. Large amount of stool within the rectum consistent with impaction. 3. Diverticulosis noted. Signer Name: Rae Moon MD Signed: 09/27/2019 10:24 PM Workstation Name: [id number]
[2019-09-28] MEDS ORDERED: ONDANSETRON 4 MG/2 ML INJ IV PRN (00:18)
[2019-09-28] MEDS ORDERED: INSULIN LISPRO 100 UNIT/ML SUB-Q ONE (00:23)
[2019-09-28] MEDS ORDERED: ALBUTEROL 2.5 MG/3 ML NEBU IH PRN (00:24)
[2019-09-28] MEDS ORDERED: PHENYTOIN 100 MG/4 ML ORAL.LIQD PO ONE (00:56)
[2019-09-28] MEDS ORDERED: traZODone 100 MG TAB PO ONE (01:16)
[2019-09-28] MEDS ORDERED: PHENYTOIN 100 MG CAPSULE.ER ONE (01:16)
[2019-09-28] MEDS: traZODone 100 MG TAB PO SCH ×3 (01:21→22:08)
[2019-09-28] MEDS: D5W/0.45% NACL 1,000 ML IV SCH (04:48)
[2019-09-28] MEDS: PANTOPRAZOLE 40 MG INJ IV SCH ×2 (04:48→14:42)
[2019-09-28 04:55] LABS: Hematocrit 43.6 % (30.3-42.9); Hemoglobin 14.7 gm/dl (10.1-14.3)
--- NOTE | 2019-09-28 05:57 | History and Physical Report ---
History of Present Illness Date of examination: 09/28/19 Date of admission: 09/27/19 23:43 Chief complaint: Rectal bleed for the past 2 days History of present illness: Simin Cedeño is a 64-year-old female with a past medical history of diverticular disease, diverticulitis, partial colon resection secondary to diverticular disease, type 2 diabetes, hypertension, hyperlipidemia, asthma and GERD and external and internal hemorrhoids, presents to the ED complaining of rectal bleeding intermittently for the last 1 month more persistent for the last 2 days. Patient states she has a sensation of either passing gas or having a bowel movement and then will passes bright red blood per rectum. She complains of intermittent left lower quadrant pain that is mild to moderate. She denies fever, nausea, or vomiting. She had one episode of rectal bleeding today without the passage of stool. Patient takes Plavix daily and is allergic to aspirin. Patient had a colonoscopy 3 months ago and states that polyps were removed. Bleeding has started since last colonoscopy. Although patient has a history of diverticular disease she denies history of diverticular GI bleed requiring blood transfusion. patient's GI doctor: Dr. Erickson. Patient is being admitted for further evaluation of her bright red bleeding per rectum Past History Past Medical History: diabetes, GERD, hypertension, hyperlipidemia Past Surgical History: bowel surgery Social history: no significant social history Family history: diabetes, hypertension Medications and Allergies Allergies Allergy/AdvReac Type Severity Reaction Status Date / Time Sulfa (Sulfonamide Allergy Mild Unknown Verified 08/07/19 15:53 Antibiotics) acetaminophen Allergy RASH;ITCHIN Verified 08/07/19 15:53 [From Darvocet-N] G adhesive Allergy PULLS SKIN Verified 08/07/19 15:53 OFF aspirin Allergy Itching Verified 08/07/19 15:53 atorvastatin Allergy Unknown Verified 08/07/19 15:53 caffeine Allergy Unknown Verified 08/07/19 15:53 ibuprofen [From Motrin] Allergy Unknown Verified 08/07/19 15:53 Iodinated Contrast Media Allergy Angioedema Verified 08/07/19 15:53 [Iodinated Contrast Media - IV Dye] iodine Allergy Swelling Verified 08/07/19 15:53 latex Allergy ITCHING;NESTOR Verified 08/07/19 15:53 H lidocaine Allergy Unknown Verified 08/07/19 15:53 oxycodone HCl [From Percocet] Allergy Itching;NESTOR Verified 08/07/19 15:53 H propoxyphene napsylate Allergy RASH;ITCHIN Verified 08/07/19 15:53 [From Kenny] G shellfish derived Allergy Swelling Verified 08/07/19 15:53 Home Medications Medication Instructions Recorded Confirmed Last Taken Type Gabapentin 300 mg PO TID 04/21/14 09/27/19 07/25/19 22:00 History Losartan [Cozaar] 100 mg PO DAILY 04/21/14 09/27/19 07/26/19 05:00 History amLODIPine 10 mg PO QHS 04/21/14 09/27/19 07/25/19 22:00 History Albuterol INH(or & Nicu Only) 2 puff IH PRN PRN 06/18/19 09/27/19 07/26/19 06:00 History [ProAir HFA Inhaler] Cetirizine HCl [ZyrTEC 10mg cap] 10 mg PO DAILY 06/18/19 09/27/19 07/26/19 05:00 History Clopidogrel [Plavix] 75 mg PO QDAY 06/18/19 09/27/19 07/19/19 09:00 History Dicyclomine [Bentyl] 10 mg PO BID PRN 06/18/19 09/27/19 07/25/19 19:00 History Fluticasone/Vilanterol [Breo 1 puff IH DAILY 06/18/19 09/27/19 07/25/19 22:00 History Ellipta 100-25 Mcg INH] L. Acidophilus/Pectin, Ray 1 each PO DAILY 06/18/19 09/27/19 07/25/19 05:00 H istory [Acidophilus Probiotic Capsule] Linaclotide [Linzess] 290 mcg PO DAILY 06/18/19 09/27/19 07/25/19 05:00 History Magnesium Citrate 1 dose PO QWEEK PRN 06/18/19 09/27/19 07/19/19 09:00 History Montelukast [Singulair] 10 mg PO QPM 06/18/19 09/27/19 07/25/19 22:00 History Phenytoin [Dilantin] 300 mg PO DAILY 06/18/19 09/27/19 07/26/19 05:00 History Rosuvastatin Calcium [Crestor] 40 mg PO DAILY 06/18/19 09/27/19 07/25/19 09:00 History Wheat Dextrin [Benefiber] 1 dose PO DAILY 06/18/19 09/27/19 07/25/19 09:00 History bisacodyL [Dulcolax] 5 mg PO DAILY PRN 06/18/19 09/27/19 07/25/19 09:00 History metFORMIN [Glucophage] 500 mg PO BID 06/18/19 09/27/19 07/25/19 19:00 History propranoloL [Inderal] 120 mg PO BID 06/18/19 09/27/19 07/25/19 22:00 History traZODone [Desyrel] 100 mg PO QHS 06/18/19 09/28/19 07/24/19 21:00 History HYDROcodone/APAP 5-325 [[place] 1 each PO Q4HR PRN #20 tablet 07/26/19 09/27/19 Unknown Rx 5-325 mg TAB] Ondansetron [Zofran Odt] 4 mg PO Q8HR PRN #20 tab.rapdis 08/07/19 09/27/19 Unknown Rx Dilantin 100 mg PO DAILY 09/27/19 09/27/19 Unknown History Metoprolol SUCCINATE ER TAB 100 mg PO DAILY 09/27/19 09/27/19 Unknown History Pepcid 40 mg PO DAILY 09/27/19 09/27/19 Unknown History Sumatriptan 50 mg PO DAILY 09/27/19 09/27/19 Unknown History Topiramate 50 mg PO DAILY 09/27/19 09/27/19 Unknown History metFORMIN 500 mg PO BID 09/27/19 09/27/19 Unknown History Active Meds: Active Medications Albuterol (Proventil) 2.5 mg IH Q6H PRN PRN Reason: Dyspnea Dextrose/Sodium Chloride (D5/0.45ns) 1,000 mls @ 75 mls/hr IV DIRECT GRETEL Last Admin: 09/28/19 04:48 Dose: 75 mls/hr Documented by: Ondansetron HCl (Zofran) 4 mg IV Q8H PRN PRN Reason: Nausea And Vomiting Pantoprazole Sodium (Protonix) 40 mg IV Q12H GRETEL Last Admin: 09/28/19 04:48 Dose: 40 mg Documented by: Sodium Chloride (Sodium Chloride Flush Syringe 10 Ml) 10 ml IV BID GRETEL Sodium Chloride (Sodium Chloride Flush Syringe 10 Ml) 10 ml IV PRN PRN PRN Reason: LINE FLUSH Trazodone HCl (Desyrel) 100 mg PO QHS [facility] Last Admin: 09/28/19 01:21 Dose: 100 mg Documented by: Review of Systems All systems: negative (13 point review of systems is essentially unremarkable except as stated above in the history of present illness) Exam - Constitutional Vitals: Temp Pulse Resp BP Pulse Ox 98 F 68 14 162/73 97 09/27/19 11:26 09/27/19 20:00 09/28/19 01:09 09/28/19 01:09 09/28/19 01:09 General appearance: Present: no acute distress, well-nourished - EENT Eyes: Present: PERRL, EOM intact ENT: hearing intact, clear oral mucosa - Neck Neck: Present: supple, normal ROM. Absent: masses or JVD - Respiratory Respiratory effort: normal Respiratory: bilateral: CTA - Cardiovascular Rhythm: regular Heart Sounds: Present: S1 & S2 - Extremities Extremities: No edema - Abdominal General gastrointestinal: Present: soft, non-tender. Absent: hepatomegaly, splenomegaly Female genitourinary: Present: deferred - Rectal Rectal Exam: deferred - Integumentary Integumentary: Present: clear - Musculoskeletal Musculoskeletal: strength equal bilaterally - Psychiatric Psychiatric: appropriate mood/affect - Neurologic Neurologic: no focal deficits, moves all extremities Results - Labs CBC & Chem 7: 09/28/19 03:38 09/27/19 13:43 Labs: Abnormal lab results 09/27/19 09/27/19 09/27/19 Range/Units 13:43 13:43 13:43 Hgb (10.1-14.3) gm/dl Hct (30.3-42.9) % RDW 15.5 H (13.2-15.2) % Lymphocytes % (Manual) 54.0 H (13.4-35.0) % PT 11.9 L (12.2-14.9) Sec. Carbon Dioxide 20 L (22-30) mmol/L Glucose 102 H (65-100) mg/dL Alkaline Phosphatase 138 H (35-129) units/L 02/15/20 Range/Units 03:38 Hgb 14.7 H (10.1-14.3) gm/dl Hct 43.6 H (30.3-42.9) % RDW (13.2-15.2) % Lymphocytes % (Manual) (13.4-35.0) % PT (12.2-14.9) Sec. Carbon Dioxide (22-30) mmol/L Glucose (65-100) mg/dL Alkaline Phosphatase (35-129) units/L Assessment and Plan - Patient Problems (1) Rectal bleeding Current Visit: Yes Status: Acute Plan to address problem: Although patient states that she has been having rectal bleed off and on for the past month and increased frequency of rectal bleed for the past 2 days, her hemoglobin and hematocrit are in the normal range and she is hemodynamically stable. Rule out rectal bleed secondary to internal/external hemorrhoids, rule out diverticular bleed GI was consulted by the ED physician Will keep the patient n.p.o. Monitor H&H closely IV fluids CT of the abdomen and pelvis results reviewed (2) Hx of irritable bowel syndrome Current Visit: Yes Status: Chronic Plan to address problem: Patient states that she was told by her GI that she has IBS Await GI follow-up (3) Chronic constipation Current Visit: Yes Status: Chronic Plan to address problem: CT of the abdomen and pelvis results reviewed Await GI follow-up (4) Hypertension Current Visit: Yes Status: Chronic Qualifiers: Hypertension type: essential hypertension Qualified Code(s): I10 - Essential (primary) hypertension Plan to address problem: Resume patient's home medications Blood pressure is fair (5) Hyperlipidemia Current Visit: Yes Status: Chronic Plan to address problem: Patient is not on any medication as she is allergic to statin
[2019-09-28 07:30] LABS: Hematocrit 41.9 % (30.3-42.9); Hemoglobin 14.3 gm/dl (10.1-14.3)
--- NOTE | 2019-09-28 16:03 | Event Note ---
Date: 09/28/19 Patient admitted with rectal bleeding. I have seen and examined her. GI following.
[2019-09-28] MEDS ORDERED: HYDROcodone/ACETAMINOPHEN 5-325 MG TAB PO PRN (17:37)
[2019-09-28] MEDS ORDERED: NON-FORMULARY EACH (Losartan [Cozaar] 100 MG) PO SCH (17:45)
[2019-09-28] MEDS ORDERED: VILANTEROL IH SCH (17:45)
[2019-09-28] MEDS ORDERED: TOPIRAMATE 50 MG PO SCH (17:45)
[2019-09-28] MEDS ORDERED: FLUTICASONE IH SCH (17:45)
[2019-09-28] MEDS: PHENYTOIN 100 MG CAPSULE.ER PO SCH (18:44)
[2019-09-28] MEDS: MONTELUKAST 10 MG TAB PO SCH (18:45)
[2019-09-28] MEDS: LOSARTAN 50 MG TAB PO SCH (19:37)
[2019-09-28] MEDS: GABAPENTIN 100 MG CAP PO SCH (20:00)
[2019-09-28] MEDS: amLODIPine 10 MG TAB PO SCH (21:38)
[2019-09-28] MEDS ORDERED: NON-FORMULARY EACH (Metformin 500 MG) PO SCH (22:00)
[2019-09-28] MEDS: PROPRANOLOL 40 MG TAB PO SCH (23:08)
--- NOTE | 2019-09-29 01:22 | Consultation ---
REFERRING PHYSICIAN: Estevan Elder MD INDICATION: Rectal bleeding. HISTORY OF PRESENT ILLNESS: The patient is a 64-year-old black female with a history of diverticulitis, diverticular disease, and status post partial resection due to diverticular disease in the past as well as diabetes, hypertension, and high cholesterol. The patient presents with intermittent rectal bleeding for the last month, worse over the last 2 days. She reports 2-3 bloody bowel movements at that time when she goes to the restroom. She reports no nausea or vomiting. She denies any melena. She reports the blood is bright red and maroon. She denies any significant weight loss. The patient is concerned about this. The patient reports she had a colonoscopy 3-4 months ago, which showed diverticular disease and polyps. She denies any other specific complaints. PAST MEDICAL HISTORY: 1. Hypertension. 2. GERD. 3. High cholesterol. PAST SURGICAL HISTORY: Status post partial colon resection for diverticular disease. MEDICATIONS: Reviewed and updated in chart. ALLERGIES: INCLUDES SULFA, ACETAMINOPHEN, STATIN, LATEX, LIDOCAINE, OXYCODONE, AND DARVOCET. SOCIAL HISTORY: Denies alcohol, tobacco, or drug abuse. FAMILY HISTORY: Negative for colon cancer, IBD, or liver disease. REVIEW OF SYSTEMS: GENERAL: Reports mild weakness. HEENT: No visual complaints or tinnitus. PULMONARY: No shortness of breath. No cough. No chest pain. GASTROINTESTINAL: Reports rectal bleeding. All points of 13-point review of systems otherwise negative. PHYSICAL EXAMINATION: VITAL SIGNS: Temperature of 98.5, pulse 79, respirations 18, blood pressure 143/70. GENERAL: Fairly nourished female, in no acute distress. HEENT: Pupils equal, round, reactive. PULMONARY: Clear to auscultation bilaterally. CARDIOVASCULAR: Regular rhythm. Normal S1, S2. ABDOMEN: Soft. SKIN: No obvious rashes. LABORATORY DATA: Pertinent for a white count of 8.1, hemoglobin and hematocrit of 13.7 and 40.2, platelet count of 210. Chem-7 within normal limits. LFTs within normal limits. Coags within normal limits. CT scan of abdomen and pelvis with contrast performed on 09/27/2014 showed some stool, but otherwise negative. ASSESSMENT AND PLAN: A 64-year-old female with a history of diverticular disease and partial resection for diverticular disease of the colon, now presents with 2 days of 2-3 per day bloody bowel movements with a stable H and H. The patient has had no further bleeding today. The patient was very anxious about this recent event. Management as noted below. PLAN: 1. Follow hematocrit and transfuse as needed. 2. Avoid NSAIDs and aspirin. 3. If stable in a.m., probably can be discharged from GI standpoint, though I think the patient will probably uncomfortable with that decision. 4. Consider colonoscopy on Monday if the patient is still in the hospital. 5. We will follow. JOB# [id number] CAB/NTS
[2019-09-29 04:55] LABS: Hematocrit 38.9 % (30.3-42.9); Hemoglobin 13.3 gm/dl (10.1-14.3); Mean Corpuscular HGB Conc 34 % (30-34); Mean Corpuscular Volume 94 fl (79-97); Platelet Count 195 K/mm3 (140-440); Red Blood Count 4.15 M/mm3 (3.65-5.03); Red Cell Distribution Width 15.4 % (13.2-15.2)
[2019-09-29 05:13] LABS: BUN/Creatinine Ratio 6; Blood Urea Nitrogen 4 mg/dL (7-17); Calcium 9.1 mg/dL (8.4-10.2); Hemolysis Index 8
[2019-09-29 06:17] LABS: Basophils % (Manual) 0 % (0.0-1.8); Total Cells Counted 100
[2019-09-29 06:18] LABS: Platelet Estimate Consistent w Auto; Schistocytes Rare
[2019-09-29] MEDS: GABAPENTIN 100 MG CAP PO SCH ×3 (08:40→22:46)
[2019-09-29] MEDS: metFORMIN 500 MG TAB PO SCH ×2 (08:40→18:17)
[2019-09-29] MEDS: LOSARTAN 50 MG TAB PO SCH (09:25)
[2019-09-29] MEDS: PROPRANOLOL 40 MG TAB PO SCH ×2 (09:25→22:43)
[2019-09-29] MEDS: CETIRIZINE 10 MG TAB PO SCH (09:25)
[2019-09-29] MEDS: PHENYTOIN 100 MG CAPSULE.ER PO SCH (09:26)
[2019-09-29] MEDS: TOPIRAMATE TAB 25 MG TAB PO SCH (09:26)
[2019-09-29] MEDS: BUDESONIDE 0.5 MG/2 ML NEBU IH SCH ×2 (09:59→20:23)
[2019-09-29] MEDS: ARFORMOTEROL 15 MCG/2 ML NEBU IH SCH ×2 (10:00→20:23)
[2019-09-29] MEDS ORDERED: NON-FORMULARY EACH (Rosuvastatin Calcium [Crestor] 40 MG) PO SCH (10:00)
[2019-09-29] MEDS ORDERED: NON-FORMULARY EACH (Cetirizine Hcl [Zyrtec 10mg Cap] 10 MG) PO SCH (10:00)
--- NOTE | 2019-09-29 12:15 | Progress Note ---
Assessment and Plan Assessment and plan: Rectal bleeding Rule out rectal bleed secondary to internal/external hemorrhoids, rule out diverticular bleed GI was consulted by the ED physician Monitor H&H closely IV fluids CT of the abdomen and pelvis results reviewed Discussed with Dr. Bustillos. For colonoscopy tomorrow Hx of irritable bowel syndrome Patient states that she was told by her GI that she has IBS Chronic constipation CT of the abdomen and pelvis results reviewed Hypertension Resume patient's home medications Blood pressure is fair Hyperlipidemia Patient is not on any medication as she is allergic to statin For colonoscopy tomorrow Hospitalist Physical - Physical exam Narrative exam: GEN: Not in acute distress, lying in bed, overweight HEENT: Normocephalic, atraumatic, Neck: supple, No JVD Lungs: Clear to auscultation, no wheeze, heart;S1 and S2 reg, no murmurs, rubs or gallop Abd:soft, non tender , non distended, normal bowel sounds Ext: No edema, no clubbing, no cyanosis Neuro: Awake,alert, oriented X 3, no focal neurological signs - Constitutional Vitals: Temp Pulse Resp BP Pulse Ox 98.3 F 94 H 18 129/79 97 09/28/19 22:41 09/29/19 09:25 09/28/19 22:41 09/29/19 09:25 09/28/19 22:41 General appearance: Present: no acute distress, well-nourished Results - Labs CBC & Chem 7: 09/29/19 04:30 09/29/19 04:30 Labs: Laboratory Last Values WBC 7.1 K/mm3 (4.5-11.0) 09/29/19 04:30 RBC 4.15 M/mm3 (3.65-5.03) 09/29/19 04:30 Hgb 13.3 gm/dl (10.1-14.3) 09/29/19 04:30 Hct 38.9 % (30.3-42.9) 09/29/19 04:30 MCV 94 fl (79-97) 09/29/19 04:30 MCH 32 pg (28-32) 09/29/19 04:30 MCHC 34 % (30-34) 09/29/19 04:30 RDW 15.4 % (13.2-15.2) H 09/29/19 04:30 Plt Count 195 K/mm3 (140-440) 09/29/19 04:30 Lymph % (Auto) Forest[employer] Aid 09/29/19 04:30 Add Manual Diff Complete 09/29/19 04:30 Total Counted 100 09/29/19 04:30 Seg Neutrophils % [employer] Aid 09/29/19 04:30 Seg Neuts % (Manual) 33.0 % (40.0-70.0) L 09/29/19 04:30 Band Neutrophils % 0 % 09/29/19 04:30 Lymphocytes % (Manual) 60.0 % (13.4-35.0) H 09/29/19 04:30 Reactive Lymphs % (Man) 0 % 09/29/19 04:30 Monocytes % (Manual) 6.0 % (0.0-7.3) 09/29/19 04:30 Eosinophils % (Manual) 1.0 % (0.0-4.3) 09/29/19 04:30 Basophils % (Manual) 0 % (0.0-1.8) 09/29/19 04:30 Metamyelocytes % 0 % 09/29/19 04:30 Myelocytes % 0 % 09/29/19 04:30 Promyelocytes % 0 % 09/29/19 04:30 Blast Cells % 0 % 09/29/19 04:30 Nucleated RBC % Not Reportable 09/29/19 04:30 Seg Neutrophils # Man 2.3 K/mm3 (1.8-7.7) 09/29/19 04:30 Band Neutrophils # 0.0 K/mm3 09/29/19 04:30 Lymphocytes # (Manual) 4.3 K/mm3 (1.2-5.4) 09/29/19 04:30 Abs React Lymphs (Man) 0.0 K/mm3 09/29/19 04:30 Monocytes # (Manual) 0.4 K/mm3 (0.0-0.8) 09/29/19 04:30 Eosinophils # (Manual) 0.1 K/mm3 (0.0-0.4) 09/29/19 04:30 Basophils # (Manual) 0.0 K/mm3 (0.0-0.1) 09/29/19 04:30 Metamyelocytes # 0.0 K/mm3 09/29/19 04:30 Myelocytes # 0.0 K/mm3 09/29/19 04:30 Promyelocytes # 0.0 K/mm3 09/29/19 04:30 Blast Cells # 0.0 K/mm3 09/29/19 04:30 WBC Morphology Not Reportable 09/29/19 04:30 Hypersegmented Neuts Not Reportable 09/29/19 04:30 Hyposegmented Neuts Not Reportable 09/29/19 04:30 Hypogranular Neuts Not Reportable 09/29/19 04:30 Smudge Cells Not Reportable 09/29/19 04:30 Toxic Granulation Not Reportable 09/29/19 04:30 Toxic Vacuolation Not Reportable 09/29/19 04:30 Dohle Bodies Not Reportable 09/29/19 04:30 Pelger-Huet Anomaly Not Reportable 09/29/19 04:30 Dena Rods Not Reportable 09/29/19 04:30 Platelet Estimate Consistent w auto 09/29/19 04:30 Clumped Platelets Not Reportable 09/29/19 04:30 Plt Clumps, EDTA Not Reportable 09/29/19 04:30 Large Platelets Not Reportable 09/29/19 04:30 Giant Platelets Not Reportable 09/29/19 04:30 Platelet Satelliting Not Reportable 09/29/19 04:30 Plt Morphology Comment Not Reportable 09/29/19 04:30 RBC Morphology Not Reportable 09/29/19 04:30 Dimorphic RBCs Not Reportable 09/29/19 04:30 Polychromasia Not Reportable 09/29/19 04:30 Hypochromasia Not Reportable 09/29/19 04:30 Poikilocytosis Not Reportable 09/29/19 04:30 Anisocytosis Not Reportable 09/29/19 04:30 Microcytosis Not Reportable 09/29/19 04:30 Macrocytosis Not Reportable 09/29/19 04:30 Spherocytes Not Reportable 09/29/19 04:30 Pappenheimer Bodies Not Reportable 09/29/19 04:30 Sickle Cells Not Reportable 09/29/19 04:30 Target Cells Not Reportable 09/29/19 04:30 Tear Drop Cells Not Reportable 09/29/19 04:30 Ovalocytes Not Reportable 09/29/19 04:30 Helmet Cells Not Reportable 09/29/19 04:30 [place] Bodies Not Reportable 09/29/19 04:30 [place] Rings Not Reportable 09/29/19 04:30 Yasir Cells Not Reportable 09/29/19 04:30 Bite Cells Not Reportable 09/29/19 04:30 Crenated Cell Not Reportable 09/29/19 04:30 Elliptocytes Not Reportable 09/29/19 04:30 Acanthocytes (Spur) Not Reportable 09/29/19 04:30 Rouleaux Not Reportable 09/29/19 04:30 Hemoglobin C Crystals Not Reportable 09/29/19 04:30 Schistocytes Rare 09/29/19 04:30 Malaria parasites Not Reportable 09/29/19 04:30 Richard Bodies Not Reportable 09/29/19 04:30 Hem Pathologist Commnt No 09/29/19 04:30 PT 11.9 Sec. (12.2-14.9) L 09/27/19 13:43 INR 0.87 (0.87-1.13) 09/27/19 13:43 APTT 26.1 Sec. (24.2-36.6) 09/27/19 13:43 Sodium 143 mmol/L (137-145) 09/29/19 04:30 Potassium 3.4 mmol/L (3.6-5.0) L D 09/29/19 04:30 Chloride 108.3 mmol/L (98-107) H 09/29/19 04:30 Carbon Dioxide 20 mmol/L (22-30) L 09/29/19 04:30 Anion Gap 18 mmol/L 09/29/19 04:30 BUN 4 mg/dL (7-17) L 09/29/19 04:30 Creatinine 0.7 mg/dL (0.7-1.2) 09/29/19 04:30 Estimated GFR > 60 ml/min 09/29/19 04:30 BUN/Creatinine Ratio 6 % 09/29/19 04:30 Glucose 112 mg/dL (65-100) H 09/29/19 04:30 POC Glucose 101 (70-105) 09/29/19 11:42 Calcium 9.1 mg/dL (8.4-10.2) 09/29/19 04:30 Total Bilirubin 0.20 mg/dL (0.1-1.2) 09/27/19 13:43 AST 21 units/L (5-40) 09/27/19 13:43 ALT 23 units/L (7-56) 09/27/19 13:43 Alkaline Phosphatase 138 units/L (35-129) H 09/27/19 13:43 Total Protein 7.0 g/dL (6.3-8.2) 09/27/19 13:43 Albumin 4.6 g/dL (3.9-5) 09/27/19 13:43 Albumin/Globulin Ratio 1.9 % 09/27/19 13:43 Active Medications - Current Medications Current Medications: Generic Name Dose Route Start Last Admin Trade Name Freq PRN Reason Stop Dose Admin Acetaminophen/Hydrocodone Bitart 1 each 09/28/19 17:37 [place] 5/325 PO Q4HR PRN Pain, Moderate (4-6) Albuterol 2.5 mg 09/28/19 00:24 Proventil IH Q6H PRN Dyspnea Amlodipine Besylate 10 mg 09/28/19 22:00 09/28/19 21:38 Amlodipine PO 10 mg QHS GRETEL Administration Arformoterol Tartrate 15 mcg 09/29/19 08:00 09/29/19 10:00 Brovana Nebu IH 15 mcg Q12HRT GRETEL Administration Bisacodyl 5 mg 09/28/19 17:37 09/28/19 23:09 Dulcolax PO 5 mg DAILY PRN Administration Constipation Budesonide 0.5 mg 09/29/19 08:00 09/29/19 09:59 Pulmicort IH 0.5 mg Q12HRT GRETEL Administration Cetirizine HCl 10 mg 09/29/19 10:00 09/29/19 09:25 Cetirizine PO 10 mg DAILY GRETEL Administration Gabapentin 300 mg 09/28/19 20:00 09/29/19 08:40 Gabapentin PO 300 mg TID GRETEL Administration Dextrose/Sodium Chloride 1,000 mls @ 75 mls/hr 09/28/19 01:00 09/28/19 04:48 D5/0.45ns IV 75 mls/hr DIRECT GRETEL Administration Losartan Potassium 100 mg 09/28/19 18:00 09/29/19 09:25 Cozaar PO 100 mg QDAY GRETEL Administration Metformin HCl 500 mg 09/28/19 20:00 02/16/20 08:40 Glucophage PO 500 mg BIDDIAB GRETEL Administration Miscellaneous Medication 40 mg 09/29/19 10:00 Rosuvastatin Calcium [Crestor] PO DAILY GRETEL Montelukast Sodium 10 mg 09/28/19 18:00 09/28/19 18:45 Singulair PO 10 mg QPM GRETEL Administration Ondansetron HCl 4 mg 09/28/19 00:18 Zofran IV Q8H PRN Nausea And Vomiting Pantoprazole Sodium 40 mg 09/28/19 01:00 09/28/19 14:42 Protonix IV 40 mg Q12H GRETEL Administration Phenytoin 300 mg 09/28/19 18:00 09/29/19 09:26 Dilantin PO 300 mg DAILY GRETEL Administration Propranolol HCl 120 mg 09/28/19 22:00 09/29/19 09:25 Inderal PO 120 mg BID GRETEL Administration Sodium Chloride 10 ml 09/28/19 10:00 09/29/19 09:29 Sodium Chloride Flush Syringe 10 Ml IV Not Given BID GRETEL Sodium Chloride 10 ml 09/28/19 00:18 Sodium Chloride Flush Syringe 10 Ml IV PRN PRN LINE FLUSH Topiramate 50 mg 09/28/19 20:00 09/29/19 09:26 Topamax PO 50 mg DAILY GRETEL Administration Trazodone HCl 100 mg 09/28/19 22:00 09/28/19 22:08 Desyrel PO 100 mg QHS GRETEL Administration
[2019-09-29] MEDS: PANTOPRAZOLE 40 MG INJ IV SCH (14:04)
--- NOTE | 2019-09-29 14:49 | Gastroenterology Progress Note ---
Assessment and Plan GI: pt w/ rectal bleeding, stable h/h - pt concerned for symptoms and wants further eval - colonoscopy in am Subjective Date of service: 09/29/19 Interval history: - reports rectal bleeding overnight. pt wants colonoscopy Objective - Constitutional Vitals: Temp Pulse Resp BP Pulse Ox 97.5 F L 71 18 107/65 96 09/29/19 12:17 09/29/19 12:17 09/29/19 12:17 09/29/19 12:17 09/29/19 12:17 General appearance: no acute distress - EENT Eyes: PERRL - Respiratory Respiratory: bilateral: CTA - Cardiovascular Rhythm: regular Heart Sounds: Present: S1 & S2 - Gastrointestinal General gastrointestinal: Present: soft, non-tender, non-distended - Labs CBC & Chem 7: 09/29/19 04:30 09/29/19 04:30 Labs: Laboratory Results - last 24 hr 09/28/19 09/28/19 09/28/19 11:33 16:46 20:51 WBC RBC Hgb Hct MCV MCH MCHC RDW Plt Count Lymph % (Auto) Add Manual Diff Total Counted Seg Neutrophils % Seg Neuts % (Manual) Band Neutrophils % Lymphocytes % (Manual) Reactive Lymphs % (Man) Monocytes % (Manual) Eosinophils % (Manual) Basophils % (Manual) Metamyelocytes % Myelocytes % Promyelocytes % Blast Cells % Nucleated RBC % Seg Neutrophils # Man Band Neutrophils # Lymphocytes # (Manual) Abs React Lymphs (Man) Monocytes # (Manual) Eosinophils # (Manual) Basophils # (Manual) Metamyelocytes # Myelocytes # Promyelocytes # Blast Cells # WBC Morphology Hypersegmented Neuts Hyposegmented Neuts Hypogranular Neuts Smudge Cells Toxic Granulation Toxic Vacuolation Dohle Bodies Pelger-Huet Anomaly Dena Rods Platelet Estimate Clumped Platelets Plt Clumps, EDTA Large Platelets Giant Platelets Platelet Satelliting Plt Morphology Comment RBC Morphology Dimorphic RBCs Polychromasia Hypochromasia Poikilocytosis Anisocytosis Microcytosis Macrocytosis Spherocytes Pappenheimer Bodies Sickle Cells Target Cells Tear Drop Cells Ovalocytes Helmet Cells Hernandez-[place] Bodies [place] Rings Yasir Cells Bite Cells Crenated Cell Elliptocytes Acanthocytes (Spur) Rouleaux Hemoglobin C Crystals Schistocytes Malaria parasites Richard Bodies Hem Pathologist Commnt Sodium Potassium Chloride Carbon Dioxide Anion Gap BUN Creatinine Estimated GFR BUN/Creatinine Ratio Glucose POC Glucose 113 H 105 108 H Calcium 09/29/19 09/29/19 09/29/19 04:30 04:30 07:27 WBC 7.1 RBC 4.15 Hgb 13.3 Hct 38.9 MCV 94 MCH 32 MCHC 34 RDW 15.4 H Plt Count 195 Lymph % (Auto) Family Consumer Scientist Add Manual Diff Complete Total Counted 100 Seg Neutrophils % Family Consumer Scientist Seg Neuts % (Manual) 33.0 L Band Neutrophils % 0 Lymphocytes % (Manual) 60.0 H Reactive Lymphs % (Man) 0 Monocytes % (Manual) 6.0 Eosinophils % (Manual) 1.0 Basophils % (Manual) 0 Metamyelocytes % 0 Myelocytes % 0 Promyelocytes % 0 Blast Cells % 0 Nucleated RBC % Not Reportable Seg Neutrophils # Man 2.3 Band Neutrophils # 0.0 Lymphocytes # (Manual) 4.3 Abs React Lymphs (Man) 0.0 Monocytes # (Manual) 0.4 Eosinophils # (Manual) 0.1 Basophils # (Manual) 0.0 Metamyelocytes # 0.0 Myelocytes # 0.0 Promyelocytes # 0.0 Blast Cells # 0.0 WBC Morphology Not Reportable Hypersegmented Neuts Not Reportable Hyposegmented Neuts Not Reportable Hypogranular Neuts Not Reportable Smudge Cells Not Reportable Toxic Granulation Not Reportable Toxic Vacuolation Not Reportable Dohle Bodies Not Reportable Pelger-Huet Anomaly Not Reportable Dena Rods Not Reportable Platelet Estimate Consistent w auto Clumped Platelets Not Reportable Plt Clumps, EDTA Not Reportable Large Platelets Not Reportable Giant Platelets Not Reportable Platelet Satelliting Not Reportable Plt Morphology Comment Not Reportable RBC Morphology Not Reportable Dimorphic RBCs Not Reportable Polychromasia Not Reportable Hypochromasia Not Reportable Poikilocytosis Not Reportable Anisocytosis Not Reportable Microcytosis Not Reportable Macrocytosis Not Reportable Spherocytes Not Reportable Pappenheimer Bodies Not Reportable Sickle Cells Not Reportable Target Cells Not Reportable Tear Drop Cells Not Reportable Ovalocytes Not Reportable Helmet Cells Not Reportable Hernandez-[place] Bodies Not Reportable [place] Rings Not Reportable Yasir Cells Not Reportable Bite Cells Not Reportable Crenated Cell Not Reportable Elliptocytes Not Reportable Acanthocytes (Spur) Not Reportable Rouleaux Not Reportable Hemoglobin C Crystals Not Reportable Schistocytes Rare Malaria parasites Not Reportable Richard Bodies Not Reportable Hem Pathologist Commnt No Sodium 143 Potassium 3.4 L D Chloride 108.3 H Carbon Dioxide 20 L Anion Gap 18 BUN 4 L Creatinine 0.7 Estimated GFR > 60 BUN/Creatinine Ratio 6 Glucose 112 H POC Glucose 92 Calcium 9.1 09/29/19 11:42 WBC RBC Hgb Hct MCV MCH MCHC RDW Plt Count Lymph % (Auto) Add Manual Diff Total Counted Seg Neutrophils % Seg Neuts % (Manual) Band Neutrophils % Lymphocytes % (Manual) Reactive Lymphs % (Man) Monocytes % (Manual) Eosinophils % (Manual) Basophils % (Manual) Metamyelocytes % Myelocytes % Promyelocytes % Blast Cells % Nucleated RBC % Seg Neutrophils # Man Band Neutrophils # Lymphocytes # (Manual) Abs React Lymphs (Man) Monocytes # (Manual) Eosinophils # (Manual) Basophils # (Manual) Metamyelocytes # Myelocytes # Promyelocytes # Blast Cells # WBC Morphology Hypersegmented Neuts Hyposegmented Neuts Hypogranular Neuts Smudge Cells Toxic Granulation Toxic Vacuolation Dohle Bodies Pelger-Huet Anomaly Dena Rods Platelet Estimate Clumped Platelets Plt Clumps, EDTA Large Platelets Giant Platelets Platelet Satelliting Plt Morphology Comment RBC Morphology Dimorphic RBCs Polychromasia Hypochromasia Poikilocytosis Anisocytosis Microcytosis Macrocytosis Spherocytes Pappenheimer Bodies Sickle Cells Target Cells Tear Drop Cells Ovalocytes Helmet Cells Hernandez-[place] Bodies [place] Rings [place] Cells Bite Cells Crenated Cell Elliptocytes Acanthocytes (Spur) Rouleaux Hemoglobin C Crystals Schistocytes Malaria parasites Richard Bodies Hem Pathologist Commnt Sodium Potassium Chloride Carbon Dioxide Anion Gap BUN Creatinine Estimated GFR BUN/Creatinine Ratio Glucose POC Glucose 101 Calcium
[2019-09-29] MEDS ORDERED: POLYETHYLENE GLYCOL/ELECT SOLN 4000 ML PO ONE (18:00)
[2019-09-29] MEDS: MONTELUKAST 10 MG TAB PO SCH (18:17)
[2019-09-29] MEDS: D5W/0.45% NACL 1,000 ML IV SCH (19:25)
[2019-09-29] MEDS: amLODIPine 10 MG TAB PO SCH (22:39)
[2019-09-30] MEDS: traZODone 100 MG TAB PO SCH (00:13)
[2019-09-30] MEDS: ARFORMOTEROL 15 MCG/2 ML NEBU IH SCH (07:42)
[2019-09-30] MEDS: BUDESONIDE 0.5 MG/2 ML NEBU IH SCH (07:42)
[2019-09-30] MEDS ORDERED: SODIUM CHLORIDE 0.9% 1000 ML 1,000 ML IV SCH (07:45)
[2019-09-30] MEDS: metFORMIN 500 MG TAB PO SCH ×2 (09:34→17:57)
[2019-09-30] MEDS: GABAPENTIN 100 MG CAP PO SCH ×2 (09:34→14:48)
[2019-09-30] MEDS: D5W/0.45% NACL 1,000 ML IV SCH (11:54)
[2019-09-30] MEDS: LOSARTAN 50 MG TAB PO SCH (11:55)
[2019-09-30] MEDS: TOPIRAMATE TAB 25 MG TAB PO SCH (11:56)
[2019-09-30] MEDS: PHENYTOIN 100 MG CAPSULE.ER PO SCH (11:56)
[2019-09-30] MEDS: PROPRANOLOL 40 MG TAB PO SCH (11:57)
[2019-09-30] MEDS: CETIRIZINE 10 MG TAB PO SCH (11:57)
[2019-09-30] MEDS: PANTOPRAZOLE 40 MG INJ IV SCH (14:30)
[2019-09-30] MEDS ORDERED: propofoL 200 MG/20 ML VIAL IV ONE (15:38)
--- NOTE | 2019-09-30 15:50 | Anesthesia Consultation ---
Anesthesia Consult and Med Hx Date of service: 09/30/19 - Airway Anesthetic Teeth Evaluation: Good ROM Head & Neck: Inadequate (mild restricted extension) Mental/Hyoid Distance: Adequate Mallampati Class: Class I Intubation Access Assessment: Probably Good - Pulmonary Exam CTA: Yes - Cardiac Exam Cardiac Exam: RRR - Pre-Operative Health Status ASA Pre-Surgery Classification: ASA3 Proposed Anesthetic Plan: MAC - Pulmonary Hx Smoking: No Hx Asthma: Yes (advair and proair) Hx Respiratory Symptoms: No Hx Sleep Apnea: No (FABRICIO PRE SCREEN LOW RISK) - Cardiovascular System Hx Hypertension: Yes Hx Heart Attack/AMI: No Hx Percutaneous Transluminal Coronary Angioplasty (PTCA): No - Central Nervous System Hx Seizures: Yes (on AEDs) 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
--- NOTE | 2019-09-30 15:50 | Anesthesia Day of Surgery ---
Anesthesia Day of Surgery - Day of Surgery Patient Examined: Yes Patient H&P Reviewed: Yes Patient is NPO: Yes
[2019-09-30] MEDS ORDERED: LIDOCAINE MPF (2%) 20 MG/1 ML VIAL 5 ML ONE (16:00)
--- NOTE | 2019-09-30 16:03 | Post Operative Note ---
Pre-op diagnosis: rectal bleeding Post-op diagnosis: same Findings: Colon: polyp x 2 ascending (snare) - diverticulosis - medium/large internal/external hemorrhoids - negative other Procedure: colon w/ hot snare Anesthesia: MAC Surgeon: DANIEL TOLBERT Estimated blood loss: none Pathology: list Specimen disposition: to lab Condition: stable Disposition: floor
--- NOTE | 2019-09-30 16:26 | Operative Report ---
PROCEDURE: Colonoscopy. INDICATION: Rectal bleeding. MEDICATIONS: Propofol per FARMER DIVERSIFIED CROPS. COMPLICATIONS: None. DESCRIPTION OF PROCEDURE: The patient brought to procedure suite. The patient had the procedure discussed with her at length. All risks, complications, and benefits discussed, which the patient signed for the procedure performed. The patient was placed in lateral decubitus position. Rectal exam performed prior to insertion of the scope. After adequate sedation medication as above, scope was introduced into the rectum and brought to level of cecum. Ileocecal valve, appendiceal orifice, cecal strap adequately visualized. Colonoscope was then removed and mucosa of colon visualized. Prep quality for this procedure was fair. The patient's vital signs remained stable throughout the procedure. FINDINGS: There were noted to be 2 sessile small polyps 5-8 mm noted in the ascending colon. Hot snare polyp technique was applied with removal and retrieval of both polyps and sent to pathology. No other mass lesions or polyps were noted. There were multiple medium to large left-sided diverticula noted. Retroflexion and perianal exam showed medium to large internal and external hemorrhoids. The patient tolerated the procedure well. No complications during the procedure. IMPRESSION: 1. Polyp x 2 status post hot snare polypectomy. 2. Diverticulosis. 3. Internal and external hemorrhoids with some red areas noted. RECOMMENDATIONS: 1. Follow up biopsy results. 2. Avoid NSAIDs and aspirin for 7 days. 3. High fiber. 4. Anusol-HC suppositories b.i.d. 5. Advance diet. 6. Okay to discharge from GI standpoint with followup with primary or GI. 7. We will sign off, call if needed. JOB# [id number] CAB/NTS
--- NOTE | 2019-09-30 16:35 | Discharge Summary ---
Providers - Providers Date of Admission: 09/27/19 23:43 Date of discharge: 09/30/19 Attending physician: ELADIO PEARL 09/27/19 22:41 Consult to Physician [CONS] Urgent Comment: Consulting Provider: RUBY GARCIA Physician Instructions: Reason For Exam: rectal bleeding, hx of diverticulosis and hemorrho Primary care physician: [facility] Hospitalization Condition: Fair Disposition: DC-01 TO HOME OR SELFCARE Core Measure Documentation - Palliative Care Palliative Care/ Comfort Measures: Not Applicable Exam - Constitutional Vitals: Temp Pulse Resp BP Pulse Ox 98.7 F 72 14 111/72 97 09/30/19 16:03 09/30/19 16:18 09/30/19 16:18 09/30/19 16:18 09/30/19 16:18 Plan Diet: low fat, low cholesterol, low salt Special Instructions: other (Re-start Plavix (blood thinner) on Monday10/04/2019) Plan of Treatment: 1.Follow up with PCP in 1 week. 2.Follow up with Dr. Bustillos, GI in 1 week 3.To re-start Plavix (blood thinner) on Monday10/04/2019 as per GI Follow up with: JUSTIN ROMANSUFFERN MD BRET [Primary Care Provider] - 3-5 Days
[2019-09-30] MEDS: MONTELUKAST 10 MG TAB PO SCH (17:57)
[2019-09-30 18:26] VITALS: BP 134/85
--- NOTE | 2019-09-30 19:02 | Post Anesthesia Evaluation ---
- Post Anesthesia Evaluation Patient Participated: Yes Airway Patent: Yes Stable Respiratory Function: Yes Nausea/Vomiting: No Temp > 96.8F: Yes Pain Manageable: Yes Adequeate Hydration: Yes Anesthesia Complications: No
== END 2019-09-30 19:30 | disposition home or self-care (01) | DRG 378 ==
LOC: ED 11:05 → 3A 23:43
PROVIDERS: ADMIT Internal Medicine; ATTEND Internal Medicine
PROC: 0DBK8ZZ Excision of Ascending Colon, Via Natural or Artificial Opening Endoscopic (ICD-10-PCS; principal; 2019-09-30)
DX: K57.31 Diverticulosis of large intestine without perforation or abscess with bleeding (principal); I69.351 Hemiplegia and hemiparesis following cerebral infarction affecting right dominant side; K64.4 Residual hemorrhoidal skin tags; K64.8 Other hemorrhoids; K58.1 Irritable bowel syndrome with constipation; J45.909 Unspecified asthma, uncomplicated; I10 Essential (primary) hypertension; G89.29 Other chronic pain; K21.9 Gastro-esophageal reflux disease without esophagitis; K63.5 Polyp of colon; E11.9 Type 2 diabetes mellitus without complications; E66.9 Obesity, unspecified; M19.90 Unspecified osteoarthritis, unspecified site; G43.909 Migraine, unspecified, not intractable, without status migrainosus; E78.5 Hyperlipidemia, unspecified; Z68.34 Body mass index [BMI] 34.0-34.9, adult; Z82.49 Family history of ischemic heart disease and other diseases of the circulatory system; Z83.3 Family history of diabetes mellitus; Z88.1 Allergy status to other antibiotic agents; Z88.2 Allergy status to sulfonamides; Z88.6 Allergy status to analgesic agent; Z91.041 Radiographic dye allergy status; Z91.040 Latex allergy status; Z91.013 Allergy to seafood; Z79.899 Other long term (current) drug therapy; Z90.49 Acquired absence of other specified parts of digestive tract
CPT/HCPCS: 36415; 74176; 80048; 80053; 82271; 82962; 85007; 85014; 85018; 85025; 85610; 85730; 87116; 88305; 94640; G0378; C9113; J2704; J7030

== ENCOUNTER 2021-11-15 06:46 | Day surgery (SDC) | payer BC, MEDICARE ==
[~2021-11-15 06:46] MED LIST changes: -BUPIVACAINE/PF (0.25%) 2.5 MG/ML 30 ML VIAL INFILTRATI ONE; -BUPIVACAINE/PF (0.5%) 5 MG/1 ML 30 ML VIAL INFILTRATI ONE; +LACTATED RINGERS 1,000 ML IV SCH; -LIDOCAINE (1%) 10 MG/1 ML VIAL 20 ML MDV ONE; +MIDAZOLAM 2 MG/2 ML INJ IV NR
[2021-11-15] MEDS ORDERED: ceFAZolin/Water 2 GM/20 ML 2 GM/20 ML SYRINGE IV NR (08:00)
--- NOTE | 2021-11-15 08:44 | Anesthesia Day of Surgery ---
Anesthesia Day of Surgery - Day of Surgery Patient Examined: Yes Patient H&P Reviewed: Yes Patient is NPO: Yes
--- NOTE | 2021-11-15 08:44 | Anesthesia Consultation ---
Anesthesia Consult and Med Hx Date of service: 11/15/21 - Airway Anesthetic Teeth Evaluation: Good ROM Head & Neck: Adequate (mild restricted extension) Mental/Hyoid Distance: Adequate Mallampati Class: Class I Intubation Access Assessment: Probably Good - Pulmonary Exam CTA: Yes - Cardiac Exam Cardiac Exam: RRR - Pre-Operative Health Status ASA Pre-Surgery Classification: ASA3 Proposed Anesthetic Plan: General - Pulmonary Hx Smoking: No Hx Asthma: Yes (used maintenance inhaler this morning) Hx Sleep Apnea: No (FABRICIO PRE SCREEN LOW RISK) - Cardiovascular System Hx Hypertension: Yes (took antihypertensives this morning) Hx Heart Attack/AMI: No Hx Percutaneous Transluminal Coronary Angioplasty (PTCA): No - Central Nervous System Hx Seizures: Yes (remote hx seizures) 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 Previous anesthesia records reviewed; has tolerated IV lidocaine without noted complications. States usually takes tylenol w/ codeine for pain and has also tolerated tramadol.
[2021-11-15] MEDS ORDERED: ONDANSETRON 4 MG/2 ML INJ IV PRN (09:00)
[2021-11-15] MEDS ORDERED: fentaNYL 100 MCG/2 ML INJ ONE (09:15)
[2021-11-15] MEDS ORDERED: LIDOCAINE MPF (2%) 20 MG/1 ML VIAL 5 ML ONE (09:15)
[2021-11-15] MEDS ORDERED: propofoL 200 MG/20 ML VIAL IV ONE (09:15)
[2021-11-15] MEDS ORDERED: ONDANSETRON 4 MG/2 ML INJ ONE (09:15)
[2021-11-15] MEDS ORDERED: methylPREDNISolone ACETATE 40 MG/1 ML INJ ONE (09:34)
[2021-11-15] MEDS ORDERED: BUPIVACAINE/PF (0.5%) 5 MG/1 ML 30 ML VIAL INFILTRATI ONE (09:34)
[2021-11-15] MEDS ORDERED: EPINEPHrine/PF 1 MG/1 ML INJ ONE (09:48)
[2021-11-15] MEDS ORDERED: TRIAMCINOLONE 40 MG/1 ML INJ ONE (10:11)
[2021-11-15] MEDS ORDERED: SODIUM CHLORIDE 0.9% IRRIG SOLN 2000 ML IR ONE (10:37)
[2021-11-15] MEDS ORDERED: TRIAMCINOLONE 40 MG/1 ML INJ IM ONE (10:37)
[2021-11-15] MEDS ORDERED: EPINEPHrine/PF 1 MG/1 ML INJ IV ONE (10:37)
[2021-11-15] MEDS ORDERED: dexAMETHasone 20 MG/5 ML VIAL ONE (10:39)
[2021-11-15] MEDS: HYDROmorphone 1 MG/1 ML INJ IV PRN ×4 (11:50→12:20)
[2021-11-15] MEDS ORDERED: ACETAMINOPHEN W/CODEINE 300-30 MG TAB ONE ×2 (11:51→12:26)
[2021-11-15] MEDS ORDERED: ACETAMINOPHEN W/CODEINE 300-30 MG TAB PO ONE (12:10)
--- NOTE | 2021-11-15 16:23 | Operative Report ---
Operative Report Operative Report: Preop diagnosis : Chondromalacia, right knee Postop diagnosis: Chonromalacia, with defects medial femoral condyle and lateral tibial plateau, right knee Procedure: Surgical arthroscopy, right knee with chondroplasty (multiple compartments) Surgeon: Yosef Holland MD metal moulder's assistant: Noman Benito DO Anesthesia: General with LMA Details of operative technique: Patient was prepared in same-day surgery. She was then brought to the operating room where she underwent general anesthesia utilizing an LMA. He was placed in the supine position and all pressure points were well-padded. The left lower extremity was secured in the well leg doran and the right knee was placed in the arthroscopic knee doran. The knee was in elevated and exsanguinated with an Esmarch bandage and the tourniquet was inflated to 300 mmHg. The knee was then prepped and draped in usual sterile fashion with ChloraPrep solution. A timeout was then called by the circulating nurse and once again the correct site was identified. Arthroscopy was carried out through an anterolateral approach. Patient was noted to have what appeared to be chondromalacia defects in the medial condyle along with atrophic synovial tissue and scar tissue from previous surgeries in the anterior compartment and notch of the knee. Needle meniscus was found to have some minimal defects with no obvious tears. The most striking finding was the chondral defect seen in the medial femoral condyle which was grade 3. Loose body was also encountered. Examination of the lateral compartment showed similar changes primarily affecting the tibial plateau surface with posterior and posterior medial undersurface meniscal tears. The patellofemoral compartment showed normal or reactive synovitis and no significant cartilage defects. Patellofemoral tracking was normal. Attention was then redirected to the medial compartment and utilizing an arthroscopic synovial shaver the uneven surfaces were normalized along with a significant amount of debridement for the hypertrophic synovial tissue. All uneven surfaces were contoured with the same instrument. In the lateral compartment the same instrument was also utilized to contour the inner surface tears in the posterior horn of the lateral meniscus. Estimated blood loss: None Replacement: See anesthesia record Drains : None Complications: None Tourniquet time: 64 minutes
[2021-11-15 18:56] VITALS: BP 142/86
== END 2021-11-15 06:47 | disposition home or self-care (01) ==
LOC: OR 06:46
PROVIDERS: ATTEND Orthopaedic Surgery
DX: M94.261 Chondromalacia, right knee (principal); I10 Essential (primary) hypertension; Z20.822 Contact with and (suspected) exposure to COVID-19; E78.5 Hyperlipidemia, unspecified; G43.909 Migraine, unspecified, not intractable, without status migrainosus; E78.00 Pure hypercholesterolemia, unspecified; J45.909 Unspecified asthma, uncomplicated; K21.9 Gastro-esophageal reflux disease without esophagitis; E66.9 Obesity, unspecified; M19.90 Unspecified osteoarthritis, unspecified site; E11.9 Type 2 diabetes mellitus without complications; M65.88 Other synovitis and tenosynovitis, other site; Z88.2 Allergy status to sulfonamides; Z79.899 Other long term (current) drug therapy; Z88.6 Allergy status to analgesic agent; Z91.041 Radiographic dye allergy status; Z91.013 Allergy to seafood; Z87.19 Personal history of other diseases of the digestive system; Z86.010 Personal history of colon polyps; Z90.49 Acquired absence of other specified parts of digestive tract; Z68.32 Body mass index [BMI] 32.0-32.9, adult; Z98.51 Tubal ligation status; Z90.710 Acquired absence of both cervix and uterus; Z98.890 Other specified postprocedural states; Z86.2 Personal history of diseases of the blood and blood-forming organs and certain disorders involving the immune mechanism; Z86.73 Personal history of transient ischemic attack (TIA), and cerebral infarction without residual deficits
CPT/HCPCS: 29876; 82962; J0171; J0690; J1100; J1170; J2405; J2704; J3010; J3301; J3490; J7120; U0003; J1030

== ENCOUNTER 2022-03-28 11:09 | Outpatient (CLI) | payer MEDICARE ==
--- NOTE | 2022-03-28 14:24 | XRay Report ---
RIGHT KNEE 2 VIEW(S) INDICATION / CLINICAL INFORMATION: M25.561 COMPARISON: None available. FINDINGS: BONES / JOINT(S): No acute fracture or subluxation. There is moderate tricompartment DJD. Patient is status post reduction internal fixation of tibial tuberosity. There is a small joint effusion. SOFT TISSUES: Calcific atherosclerosis. ADDITIONAL FINDINGS: None. Signer Name: Luc Yuen DO Signed: 03/28/2022 2:20 PM Workstation Name: [id number]
--- NOTE | 2022-03-28 14:25 | XRay Report ---
RIGHT FOOT 2 VIEWS INDICATION / CLINICAL INFORMATION: M79.671 . Pain in right foot. COMPARISON: None available. FINDINGS: BONES and JOINT(S): No acute fracture or subluxation. Mild degenerative arthrosis is seen along the m idfoot. There is a small inferior calcaneal enthesophyte. SOFT TISSUES: No significant abnormality. ADDITIONAL FINDINGS: None. IMPRESSION: 1. No acute findings. 2. Degenerative changes as above. Signer Name: Juan Bravo MD Signed: 03/28/2022 2:21 PM Workstation Name: [id number]
== END 2022-03-28 11:10 | disposition home or self-care (01) ==
LOC: XRAY 11:09
PROVIDERS: ATTEND Orthopaedic Surgery
DX: M19.071 Primary osteoarthritis, right ankle and foot (principal); M77.31 Calcaneal spur, right foot; M17.11 Unilateral primary osteoarthritis, right knee; M25.461 Effusion, right knee; I70.0 Atherosclerosis of aorta

== ENCOUNTER 2022-05-05 06:07 | Day surgery (SDC) | payer MEDICARE ==
[~2022-05-05 06:07] MED LIST changes: -LACTATED RINGERS 1,000 ML IV SCH; +LACTATED RINGERS 1,000 ML ONE; -MIDAZOLAM 2 MG/2 ML INJ IV NR; +ceFAZolin/STERILE WATER 2 GM/20 ML SYRINGE IV NR
[2022-05-05] MEDS ORDERED: MIDAZOLAM 2 MG/2 ML INJ ONE (07:24)
[2022-05-05] MEDS ORDERED: fentaNYL 100 MCG/2 ML INJ ONE (07:25)
[2022-05-05] MEDS ORDERED: propofoL 200 MG/20 ML VIAL IV ONE (07:25)
[2022-05-05] MEDS ORDERED: DEXTROSE 50% IN WATER (25GM) 50 ML SYRINGE IV SCH (07:30)
[2022-05-05] MEDS ORDERED: methylPREDNISolone ACETATE 40 MG/1 ML INJ ONE (07:32)
[2022-05-05] MEDS ORDERED: BUPIVACAINE/PF (0.5%) 5 MG/1 ML 30 ML VIAL INFILTRATI ONE ×2 (07:32→09:07)
[2022-05-05] MEDS ORDERED: DEXTROSE 50% IN WATER (25GM) 50 ML SYRINGE IV ONE (07:33)
--- NOTE | 2022-05-05 07:39 | Anesthesia Day of Surgery ---
Anesthesia Day of Surgery - Day of Surgery Patient Examined: Yes Patient H&P Reviewed: Yes Patient is NPO: Yes
--- NOTE | 2022-05-05 07:40 | Anesthesia Consultation ---
Anesthesia Consult and Med Hx Date of service: 05/05/22 - Airway Anesthetic Teeth Evaluation: Good ROM Head & Neck: Adequate Mental/Hyoid Distance: Adequate Mallampati Class: Class II Intubation Access Assessment: Good - Pulmonary Exam CTA: Yes - Cardiac Exam Cardiac Exam: RRR - Pre-Operative Health Status ASA Pre-Surgery Classification: ASA3 Proposed Anesthetic Plan: General, MAC - Pulmonary Hx Smoking: No Hx Asthma: Yes (USES INHALER PRN) Hx Respiratory Symptoms: No SOB: Yes (SOB WITH ACTIVITY) COPD: No Hx Sleep Apnea: No (FABRICIO PRE SCREEN LOW RISK) - Cardiovascular System Hx Hypertension: Yes - Central Nervous System Hx Neuromuscular Disorder: No Hx Seizures: Yes CVA: Yes (2020 w/ right sided weakness) Hx Back Pain: Yes (CHRONIC) Hx Psychiatric Problems: No - Gastrointestinal Hx Gastroesophageal Reflux Disease: Yes - Endocrine Hx Non-Insulin Dependent Diabetes: Yes Hx Thyroid Disease: No - Hematic Hx Anemia: Yes (NOT RECENT) - Other Systems Hx Cancer: No
[2022-05-05] MEDS ORDERED: SODIUM CHLORIDE 0.9% 1000 ML 1,000 ML ONE (08:25)
[2022-05-05] MEDS ORDERED: ePHEDrine SULFATE 50 MG/1 ML INJ ONE (08:45)
[2022-05-05] MEDS ORDERED: LIDOCAINE (1%) 10 MG/1 ML VIAL 20 ML MDV INFILTRATI ONE (09:08)
[2022-05-05] MEDS ORDERED: SODIUM CHLORIDE 0.9% 1000 ML IV SOLN IR ONE (09:09)
[2022-05-05] MEDS ORDERED: ONDANSETRON 4 MG/2 ML INJ ONE (09:29)
--- NOTE | 2022-05-05 09:47 | Procedure Note ---
Date of procedure: 05/05/22 Pre-op diagnosis: Chronic right knee pain history of septic knee Post-op diagnosis: same Procedure: Geniculate nerve radiofrequency ablation right knee Procedure The patient was brought to the OR and placed in the OR table supine position patient was Given MAC anesthesia The patient's right knee was prepped and draped in the routine sterile manner. A timeout procedure was done to identify the patient and the correct operative site. Under C-arm visualization the skin was anesthetized with the 1% lidocaine at both the medial and lateral suprapatellar regions as well as the proximal portion of the medial tibial metaphysis. Following this the the introducers radiofrequency ablator introducer probes were inserted into the distal femoral metaphysis close to the bone and midway along the sagittal plane as well as along the proximal tibial metaphysis to be appropriate place simultaneously following this following this the probe were checked for full motor nerve function there did not appear to be any next the radiofrequency ablator was turned on and the nerves were ablated to a temperature of 60C for approximately 2-1/2 minutes each. A mixture of Depo- Medrol and lidocaine was then injected into each location to help with postoperative pain and inflammation. The patient tolerated the procedure there were no complications she was then taken to postanesthesia recovery in a stable condition Anesthesia: MAC Surgeon: IKER BONILLA Estimated blood loss: minimal Condition: stable Disposition: PACU
[2022-05-05] MEDS ORDERED: HYDROcodone/ACETAMINOPHEN 5-325 MG TAB PO PRN (10:37)
--- NOTE | 2022-05-05 11:32 | Fluoroscopy Report ---
INTRAOPERATIVE FLUOROSCOPY: RIGHT KNEE INDICATION / CLINICAL INFORMATION: R KNEE RFA. Radiofrequency ablation TECHNIQUE: Intraoperative spot images were obtained during the procedure. FINDINGS / IMPRESSION: Multiple RF ablation needle set been placed adjacent to the distal femur and proximal tibia. Fluoroscopy Time: 10 seconds. Fluoroscopy Images: 2. Signer Name: Donna Charles MD Signed: 05/05/2022 11:27 AM Workstation Name: [email or web address]
[2022-05-05 11:49] VITALS: BP 129/60
== END 2022-05-05 11:20 | disposition home or self-care (01) ==
LOC: OR 06:07
PROVIDERS: ATTEND Orthopaedic Surgery
DX: M25.561 Pain in right knee (principal); G89.29 Other chronic pain; K21.9 Gastro-esophageal reflux disease without esophagitis; E11.9 Type 2 diabetes mellitus without complications; G43.909 Migraine, unspecified, not intractable, without status migrainosus; E78.00 Pure hypercholesterolemia, unspecified; I10 Essential (primary) hypertension; M19.90 Unspecified osteoarthritis, unspecified site; D64.9 Anemia, unspecified; Z88.2 Allergy status to sulfonamides; Z88.6 Allergy status to analgesic agent; Z91.041 Radiographic dye allergy status; Z91.013 Allergy to seafood; Z88.8 Allergy status to other drugs, medicaments and biological substances; Z79.899 Other long term (current) drug therapy; Z94.9 Transplanted organ and tissue status, unspecified; Z98.51 Tubal ligation status; Z90.710 Acquired absence of both cervix and uterus; Z98.890 Other specified postprocedural states; Z86.73 Personal history of transient ischemic attack (TIA), and cerebral infarction without residual deficits
CPT/HCPCS: 36415; 64624; 82947; 82962; A4649; J0690; J1030; J2250; J2405; J2704; J3010; J3490; J7030; J7120; 77002